=== PATIENT | female | born 2005 | race Hispanic/Latino ===

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

== ENCOUNTER 2024-05-01 16:33 | Emergency (ER) | payer MEDICAID, SELFPAY ==
--- NOTE | ~2024-05-01 | CT_ITS ---
EXAMINATION: CT brain wo con DATE: 05/01/2024 20:48 INDICATION: Dizziness and vision changes . TECHNIQUE: Computed tomography (CT) of the head was performed without intravenous contrast. The mA wa s adjusted according to patient size. Iterative reconstruction technique was employed. The dose-lengt h product was 681.00 mGy-cm. COMPARISON: None. FINDINGS: No acute intracranial hemorrhage or extra-axial fluid collection. No hydrocephalus, mass, or herniation. No acute ischemic infarct. Unremarkable dural venous sinus attenuation. No acute osseous abnormality. The aerated spaces are clear. IMPRESSION: No acute intracranial process. Reviewed, dictated and finalized at location K. RAL RESOURCE MANAGER
--- NOTE | ~2024-05-01 | XR_ITS ---
EXAMINATION: XR chest 2V Exam Date/Time: 05/01/2024 18:00 PITCH WORKER HISTORY: dizziness CHEST PAIN WITH HX OF ANXIETY Comparison: None. RESULT: Lines, tubes, and devices: None. Lungs and pleura: Clear. Cardiomediastinal silhouette: Normal. Other: No acute osseous or upper abdominal finding. IMPRESSION: No acute cardiopulmonary process. Reviewed, dictated and finalized at location K. H WORKER
[2024-05-01 16:48] VITALS: BP 121/74; PULSE 78; RESP 16; TEMP 36.4; O2SAT 100
--- NOTE | 2024-05-01 17:44 | ECG_ITS ---
Test Date: 2024-05-01 20:37:59 Measurements Intervals [place] Rate: 81 P: 57 MS: 140 QRS: 65 QRSD: 74 T: 58 QT: 359 QTc: 418 Interpretive Statements SINUS RHYTHM WITH SINUS ARRHYTHMIA POSSIBLE LEFT ATRIAL ENLARGEMENT RSR' IN V1 OR V2, PROBABLY NORMAL VARIANT BORDERLINE ECG No previous ECG available for comparison Electronically Signed On 05-02-2024 07:04:43 [employer]PLICATIONS SPECIALIST by Jose Lama D.O.
--- NOTE | 2024-05-01 17:46 | ED_ITS ---
HPI - Dizziness General Chief Complaint: Dizziness <Earle Mcconnell PA-C - Last Filed: 05/01/24 17:48> Stated Complaint: dizzy and lightheaded <Earle Mcconnell PA-C - Last Filed: 05/01/24 17:48> Time Seen by Provider: 05/01/24 20:00 <Earle Mcconnell PA-C - Last Filed: 05/01/24 17:48> Focused HPI: This is a 18-year-old female who presents to the ED for chief complaint of dizziness. States that she does have worsening dizziness whenever she rotates her head to the left. States that earlier today while in class she was both dizzy and lightheaded whenever she stood up. She went to the [facility] who thought she had BPPV but recommended coming to the ER for further evaluation. GENERAL: Well-appearing, well-nourished, and in no acute distress. HEAD: Normocephalic, atraumatic. CHEST: Clear to auscultation. No respiratory distress. HEART: Regular rate and rhythm. NEURO: Alert and oriented x3. Patient screened in triage and initial orders placed. Additional care and disposition to be based upon diagnostic testing and treatment. <Earle Mcconnell PA-C - Last Filed: 05/01/24 17:48> Source: patient <Earle Mcconnell PA-C - Last Filed: 05/01/24 17:48> Mode of arrival: ambulatory <Earle Mcconnell PA-C - Last Filed: 05/01/24 17:48> Limitations: no limitations <Earle Mcconnell PA-C - Last Filed: 05/01/24 17:48> History of Present Illness HPI Narrative: I agree with the above HPI <Willis Wayne MD - Last Filed: 05/02/24 00:01> Related Data Home Medications: Home Medications ?Medication ?Instructions ?Recorded ?Confirmed ?Last Taken ?Type alprazolam 0.25 mg tablet 0.25 mg PO PRN PRN Anxiety 09/28/23 09/28/23 Unknown History atomoxetine 25 mg capsule 25 mg PO DAILY 09/28/23 09/28/23 Unknown History buspirone 5 mg tablet 5 mg PO BID 09/28/23 09/28/23 Unknown History escitalopram oxalate 5 mg tablet 5 mg PO DAILY 09/28/23 09/28/23 Unknown History <Earle Mcconnell PA-C - Last Filed: 05/01/24 17:48> Allergies/Adverse Reactions: Allergies Allergy/AdvReac Type Severity Reaction Status Date / Time Penicillins Allergy Rash Verified 05/01/24 16:52 <Earle Mcconnell PA-C - Last Filed: 05/01/24 17:48> Review of Systems 2 Review of Systems: All systems reviewed & are unremarkable except as noted in HPI and below <Willis Wayne MD - Last Filed: 05/02/24 00:01> Exam 2 Narrative: APPEARANCE: Well appearing, no pain, no distress, well-nourished. HEAD: normocephalic, atraumatic. EYES: PERRLA/EOMI, conjunctivae clear. NOSE: Normal no drainage EARS:TMS clear with good light reflex. THROAT: Pharynx clear, no exudate. NECK: Supple. No adenopathy, no masses. RESPIRATORY: Airway patent, respirations nonlabored. Clear to auscultation bilaterally, no rales, rhonchi, wheezing. CARDIOVASCULAR: Regular rate and rhythm without murmurs rubs or gallops. ABDOMINAL: Soft, nontender, nondistended, normal bowel sounds MUSCULOSKELETAL: Moves all extremities. Strength/ROM intact, No edema, No calf tenderness. NEURO: Alert. Cranial nerves II through XII intact. Good gait. Good coordination SKIN: Warm, dry. Normal Color <Willis Wayne MD - Last Filed: 05/02/24 00:01> Course Vital Signs Vital signs: Vital Signs Temperature 97.6 F 05/01/24 16:48 Pulse Rate 78 05/01/24 16:48 Respiratory Rate 16 05/01/24 16:48 Blood Pressure 121/74 05/01/24 16:48 Pulse Oximetry 100 05/01/24 16:48 Oxygen Delivery Room Air 05/01/24 16:48 Temperature 97.6 F 05/01/24 16:48 Pulse Rate 86 05/01/24 22:30 Respiratory Rate 18 05/01/24 22:30 Blood Pressure 127/86 05/01/24 22:30 Pulse Oximetry 100 05/01/24 22:30 Oxygen Delivery Room Air 05/01/24 16:48 <Earle Mcconnell PA-C - Last Filed: 05/01/24 17:48> Vital Signs Temperature 97.6 F 05/01/24 16:48 Pulse Rate 78 05/01/24 16:48 Respiratory Rate 16 05/01/24 16:48 Blood Pressure 121/74 05/01/24 16:48 Pulse Oximetry 100 05/01/24 16:48 Oxygen Delivery Room Air 05/01/24 16:48 Temperature 97.6 F 05/01/24 16:48 Pulse Rate 86 05/01/24 22:30 Respiratory Rate 18 05/01/24 22:30 Blood Pressure 127/86 05/01/24 22:30 Pulse Oximetry 100 05/01/24 22:30 Oxygen Delivery Room Air 05/01/24 16:48 <Willis Wayne MD - Last Filed: 05/02/24 00:01> MDM - Dizziness MDM Narrative Medical decision making narrative: 18-year-old female presents emergency department for evaluation for lightheaded and dizziness. Patient had negative orthostatic vital signs after IV fluids. Patient is currently afebrile no leukocytosis and hemoglobin of 14.4. Patient has no acute abnormalities on her CMP patient was negative influenza RSV and for COVID, patient did go to urgent care and was instructed to present to the ED for a head CT and this was negative for acute intracranial abnormality. Chest x-ray shows no acute cardiopulmonary abnormality. EKG shows normal sinus rhythm. UA was negative for infection. Patient was updated results of her workup and states she does feel improved and patient confirmed that she was asymptomatic during her orthostatic vital signs. Patient was encouraged to increase her fluid intake and she was encouraged close follow-up with primary care physician. Patient was educated on reasons to return to the emergency department. All questions and concerns were addressed. Patient was well-appearing at time of discharge. <Willis Wayne MD - Last Filed: 05/02/24 00:01> Differential Diagnosis Differential diagnosis: Likely benign paroxysmal positional vertigo, orthostatic hypotension, cerebrovascular accident and transient cerebral ischemia <Willis Wayne MD - Last Filed: 05/02/24 00:01> Lab Data Attestation: I reviewed the patient's lab results. <Willis Wayne MD - Last Filed: 05/02/24 00:01> Result diagrams: 05/01/24 20:28 05/01/24 20:28 <Earle Mcconnell PA-C - Last Filed: 05/01/24 17:48> Labs: Lab Results 05/01/24 05/01/24 05/01/24 Range/Units 20:28 21:45 21:47 WBC 8.7 (4.5-10.0) K/mm3 RBC 4.98 (4.2-5.4) M/mm3 Hgb 14.4 (12.0-15.0) g/dL Hct 42.2 (37.0-47.0) % MCV 84.7 (80-100) fl MCH 28.9 (26-34) pg MCHC 34.1 (32-36) g/dl RDW 11.8 (11.5-14.5) % Plt Count 286 (150-375) k/mm3 MPV 9.5 (7.4-10.4) fl Immature Gran % (Auto) 0.2 (0-0.5) % Neut % (Auto) 70.2 (45.5-73.1) % Lymph % (Auto) 23.2 (18.3-44.2) % [place] % (Auto) 6.1 (2.6-8.5) % Eos % (Auto) 0.1 (0-4.4) % Baso % (Auto) 0.2 (0.2-1.2) % Lymph # (Auto) 2.02 (0.9-3.2) K/mm3 [place] # (Auto) 0.5 (0.1-0.6) K/mm3 Eos # (Auto) 0.0 (0-0.3) K/mm3 Baso # (Auto) 0.0 (0.0-0.1) K/mm3 Abs Immat Gran (auto) 0.02 (0.00-0.031) K/mm3 Absolute Neuts (auto) 6.1 (1.3-6.7) K/mm3 Absolute Nucleated RBC 0.000 (0.0-0.012) K/mm3 Nucleated RBC % 0.0 (0.0-0.2) % Sodium 138 (134-143) mmol/L Potassium 4.0 (3.4-5.0) mmol/L Chloride 100 (98-107) mmol/L Carbon Dioxide 24 (22-30) mmol/L Anion Gap 14 H (4-12) mmol/L BUN 11 (8-21) mg/dL Creatinine 0.65 L (0.7-1.0) mg/dL Estim Creat Clear Calc 86 ml/min Estimated GFR > 60 (59 - ) Glucose 100 (65-110) mg/dL Calcium 9.7 (8.9-10.7) mg/dL Total Bilirubin 0.8 (0.2-1.3) mg/dL AST 20 (14-36) U/L ALT 13 (6-35) U/L Alkaline Phosphatase 68 (45-116) U/L Total Protein 8.0 (6.3-8.6) g/dL Albumin 4.6 (3.7-5.6) g/dL Lipase 94 (23-300) U/L Urine Color Yellow (Yellow) Urine Appearance Clear (Clear) Urine pH 7.0 (5.0-9.0) Ur Specific [place] 1.004 (1.001-1.035) Urine Protein Negative (Negative) mg/dL Urine Glucose (UA) Negative (Negative) mg/dL Urine Ketones Negative (Negative) mg/dL Ur Blood (Man) Negative (Negative) Urine Nitrate Negative (Negative) Urine Bilirubin Negative (Negative) Urine Urobilinogen 0.2 (<2.0) mg/dL Leukocyte Esterase Rfl Negative (Negative) STEPHON/UL POC Urine HCG, Qual Negative (Negative) Influenza A (RT-PCR) Negative (Negative) Influenza B (RT-PCR) Negative (Negative) RSV (RT-PCR) Negative (Negative) SARS-CoV-2 RNA (RT-PCR) Negative (Negative) <Earle Mcconnell PA-C - Last Filed: 05/01/24 17:48> Lab Results 05/01/24 05/01/24 05/01/24 Range/Units 20:28 21:45 21:47 WBC 8.7 (4.5-10.0) K/mm3 RBC 4.98 (4.2-5.4) M/mm3 Hgb 14.4 (12.0-15.0) g/dL Hct 42.2 (37.0-47.0) % MCV 84.7 (80-100) fl MCH 28.9 (26-34) pg MCHC 34.1 (32-36) g/dl RDW 11.8 (11.5-14.5) % Plt Count 286 (150-375) k/mm3 MPV 9.5 (7.4-10.4) fl Immature Gran % (Auto) 0.2 (0-0.5) % Neut % (Auto) 70.2 (45.5-73.1) % Lymph % (Auto) 23.2 (18.3-44.2) % [place] % (Auto) 6.1 (2.6-8.5) % Eos % (Auto) 0.1 (0-4.4) % Baso % (Auto) 0.2 (0.2-1.2) % Lymph # (Auto) 2.02 (0.9-3.2) K/mm3 [place] # (Auto) 0.5 (0.1-0.6) K/mm3 Eos # (Auto) 0.0 (0-0.3) K/mm3 Baso # (Auto) 0.0 (0.0-0.1) K/mm3 Abs Immat Gran (auto) 0.02 (0.00-0.031) K/mm3 Absolute Neuts (auto) 6.1 (1.3-6.7) K/mm3 Absolute Nucleated RBC 0.000 (0.0-0.012) K/mm3 Nucleated RBC % 0.0 (0.0-0.2) % Sodium 138 (134-143) mmol/L Potassium 4.0 (3.4-5.0) mmol/L Chloride 100 (98-107) mmol/L Carbon Dioxide 24 (22-30) mmol/L Anion Gap 14 H (4-12) mmol/L BUN 11 (8-21) mg/dL Creatinine 0.65 L (0.7-1.0) mg/dL Estim Creat Clear Calc 86 ml/min Estimated GFR > 60 (59 - ) Glucose 100 (65-110) mg/dL Calcium 9.7 (8.9-10.7) mg/dL Total Bilirubin 0.8 (0.2-1.3) mg/dL AST 20 (14-36) U/L ALT 13 (6-35) U/L Alkaline Phosphatase 68 (45-116) U/L Total Protein 8.0 (6.3-8.6) g/dL Albumin 4.6 (3.7-5.6) g/dL Lipase 94 (23-300) U/L Urine Color Yellow (Yellow) Urine Appearance Clear (Clear) Urine pH 7.0 (5.0-9.0) Ur Specific [place] 1.004 (1.001-1.035) Urine Protein Negative (Negative) mg/dL Urine Glucose (UA) Negative (Negative) mg/dL Urine Ketones Negative (Negative) mg/dL Ur Blood (Man) Negative (Negative) Urine Nitrate Negative (Negative) Urine Bilirubin Negative (Negative) Urine Urobilinogen 0.2 (<2.0) mg/dL Leukocyte Esterase Rfl Negative (Negative) STEPHON/UL POC Urine HCG, Qual Negative (Negative) Influenza A (RT-PCR) Negative (Negative) Influenza B (RT-PCR) Negative (Negative) RSV (RT-PCR) Negative (Negative) SARS-CoV-2 RNA (RT-PCR) Negative (Negative) <Willis Wayne MD - Last Filed: 05/02/24 00:01> Imaging Data Radiologist's impression: Impressions Chest X-Ray 05/01/24 18:28 IMPRESSION: No acute cardiopulmonary process. Head CT 05/01/24 21:03 IMPRESSION: No acute intracranial process. <Willis Wayne MD - Last Filed: 05/02/24 00:01> Discharge Plan Discharge Clinical Impression: Lightheaded <Earle Mcconnell PA-C - Last Filed: 05/01/24 17:48> Patient Disposition: Home, Self-Care <Earle Mcconnell PA-C - Last Filed: 05/01/24 17:48> Condition: Stable <Earle Mcconnell PA-C - Last Filed: 05/01/24 17:48> Instructions: Antibiotic Form, Lightheadedness (ED), Dizziness (ED) <Earle Mcconnell PA-C - Last Filed: 05/01/24 17:48> Additional Instructions: Drink plenty of fluids. Have close follow-up with your primary care physician. If you have any worsening symptoms then please call or return to the emergency department. <Earle Mcconnell PA-C - Last Filed: 05/01/24 17:48> Patient Language: [place] <Earle Mcconnell PA-C - Last Filed: 05/01/24 17:48> Prescriptions: No Action buspirone 5 mg tablet 5 mg PO BID alprazolam 0.25 mg tablet 0.25 mg PO PRN PRN (Reason: Anxiety) atomoxetine 25 mg capsule 25 mg PO DAILY escitalopram oxalate 5 mg tablet 5 mg PO DAILY ibuprofen 800 mg tablet 800 mg PO Q6H PRN (Reason: pain) Qty: 30 0RF <Earle Mcconnell PA-C - Last Filed: 05/01/24 17:48> Follow-up/Referrals: UNKNOWN,DOCTOR [Primary Care Provider] - <Earle Mcconnell PA-C - Last Filed: 05/01/24 17:48>
--- OUTSIDE RECORDS SUMMARY | 2024-05-01 18:43 | XMS_ITS | Clinical Summary ---
Author Organization [facility] Address [address] [place] [address] Phone Care Team Providers Care Economic Adviser Name Role Phone Jackie Ogden MD Primary Care Provider [phone] [phone] Allergies Active Allergy Reactions Criticality Noted Date Comments Egg-Derived Products Rash Low 01/02/2016 Penicillins Other (see Comments),Rash Medium 7 Medications atomoxetine (STRATTERA) 25 MG Capsule Take 25 mg by mouth. 01/11/2024 Active venlafaxine (EFFEXOR-XR) 75 MG CAPSULE SR 24 HR Take 75 mg by mouth. 01/11/2024 Active naproxen (NAPROSYN) 500 MG Tablet Take 1 Tablet by mouth 2 times daily as needed for Mild or more severe pain. 20 Tablet 04/29/2024 Active Encounters Date Type Department Care Team Description 04/29/2024 5:33 PM CLASSIFIED COPY CONTROL CLERK - 04/29/2024 6:59 PM CLASSIFIED COPY CONTROL CLERK Emergency [facility] Emergency [address] [place] [address] Lela Alejandro, CVOR NURSE, PROPULSION GENERATOR REPAIRER Renal colic, bilateral Discharge Disposition: Discharged to home or Selfcare 04/29/2024 Travel from Last 3 Months Social History Tobacco Use Types Packs/Day Years Used Date Smoking Tobacco: Never Smokeless Tobacco: Never Tobacco Cessation:Counseling Given: Not Answered Comments Unknown Sex and Gender Information Value Date Recorded Sex Assigned at Not on file Legal Sex Female 5:23 PM CLASSIFIED COPY CONTROL CLERK Gender Identity Not on file Sexual Orientation Not on file Last Filed Vital Signs Vital Sign Reading Time Taken Comments Blood Pressure 140/84 04/29/2024 6:56 PM CLASSIFIED COPY CONTROL CLERK Pulse 99 04/29/2024 6:56 PM CLASSIFIED COPY CONTROL CLERK Temperature 36.7 C (98 F) 04/29/2024 5:31 PM CLASSIFIED COPY CONTROL CLERK Respiratory Rate 16 04/29/2024 6:56 PM CLASSIFIED COPY CONTROL CLERK Oxygen Saturation 100% 04/29/2024 6:56 PM CLASSIFIED COPY CONTROL CLERK Inhaled Oxygen Concentration - - Weight 42.6 kg (94 lb) 04/29/2024 5:31 PM CLASSIFIED COPY CONTROL CLERK Height 152.4 cm (5') 04/29/2024 5:31 PM CLASSIFIED COPY CONTROL CLERK Body Mass Index 18.36 04/29/2024 5:31 PM CLASSIFIED COPY CONTROL CLERK Plan of Treatment Health Maintenance Due Date Last Done Comments Hepatitis C Virus (HCV) Screening 2004 Meningococcal B Immunization (1 of 2 - Standard) 2020 Human Papillomavirus (HPV) Immunization (3 - Risk 3-dose series) 02/02/2021 10/02/2020, 08/01/2018 Influenza Immunization (#1) 2023 SARS-COV-2 Immunization ( season) 2023 04/19/2021, 03/27/2021 Respiratory Syncytial Virus (RSV) Immunization (Adult) (1 - 1-dose 75+ series) 12/26/2079 Hepatitis B Immunization Completed 006, 07/22/2005, 03/19/2005, Additional history exists Pneumococcal Immunization Combined Aged Out 07/07/2010, 01/12/2006, 07/22/2005, Additional history exists No longer eligible based on patient's age to complete this topic TdaP Immunization Completed 10/31/2016, 11/01/2015 Meningococcal Immunization (ACWY) Completed 10/19/2022, 12/20/2016 Rotavirus Immunization Aged Out No lo nger eligible based on patient's age to complete this topic Procedures Procedure Name Priority Date/Time Associated Diagnosis Comments CT RENAL STONE STUDY (ABDOMEN AND PELVIS W/O CONTRAST) Stat with Interpretation 04/29/2024 6:10 PM CLASSIFIED COPY CONTROL CLERK POCT URINE HCG () STAT 04/29/2024 5:51 PM CLASSIFIED COPY CONTROL CLERK URINALYSIS REFLEX IF INDICATED BY ABNORMAL RESULTS STAT 04/29/2024 5:45 PM CLASSIFIED COPY CONTROL CLERK RSV,SARS-COV-2,INF LUENZA A&B BY PCR STAT 04/29/2024 5:45 PM CLASSIFIED COPY CONTROL CLERK CBC WITH AUTO DIFFERENTIAL STAT 04/29/2024 5:41 PM CLASSIFIED COPY CONTROL CLERK CMP (COMPREHENSIVE METABOLIC PANEL) STAT 04/29/2024 5:41 PM CLASSIFIED COPY CONTROL CLERK COMPLETE BLOOD COUNT (CBC) WITH DIFF STAT 04/29/2024 5:41 PM CLASSIFIED COPY CONTROL CLERK from Last 3 Months Results * CT RENAL STONE STUDY (ABDOMEN AND PELVIS W/O CONTRAST) (04/29/2024 6:10 PM CLASSIFIED COPY CONTROL CLERK) Anatomical Region Laterality Modality Abdomen N/A Computed Tomogra phy 04/29/2024 6:25 PM CLASSIFIED COPY CONTROL CLERK Impressions 04/29/2024 6:27 PM CLASSIFIED COPY CONTROL CLERK IMPRESSION: 1. No hydronephrosis or hydroureter. No calculi in the urinary tract. 2. Circumferential thickening of the urinary bladder wall which is could be due to incomplete distension. However, cystitis remains a possibility in the appropriate clinical setting. Correlation with urinalysis is suggested. Narrative 04/29/2024 6:27 PM CLASSIFIED COPY CONTROL CLERK EXAM DESCRIPTION: CT RENAL STONE STUDY (ABDOMEN AND PELVIS W/O CONTRAST) REASON FOR STUDY: pt c/o bilateral flank pain, but is more painful on the left. pt states she has burning when urinating TECHNIQUE: CT scan of the abdomen and pelvis performed without intravenous and without oral contrast using helical scanning technique. Reconstructed coronal and sagittal MPR images reviewed. All images stored on PACS. Automated exposure control was used as a dose optimization technique for this examination. COMPARISON: None available FINDINGS: The sensitivity for detection of visceral lesions is diminished without the use of intravenous contrast. LOWER CHEST: Mild scattered subsegmental atelectasis. No pleural effusion. Imaged portions of the heart and esophagus are within normal limits. LIVER: Normal size. No identified cystic or solid masses. GALLBLADDER: Normal. BILE DUCTS: No intrahepatic or extrahepatic ductal dilatation. SPLEEN: Normal size. No focal lesions. PANCREAS: No identified cystic or solid masses. No significant calcifications. No adjacent inflammation or peripancreatic fluid collections. Pancreatic duct not dilated. ADRENALS: Normal. KIDNEYS/URINARY TRACT: No identified significant cystic or solid masses. No stones. No hydronephrosis or hydroureter. Circumferential thickening of the urinary bladder wall which is incompletely distended. GI: The stomach is normal. Small bowel and colon are normal in course and caliber with no evidence of obstruction or inflammation. The appendix is normal. PERITONEUM: Trace volume free pelvic fluid. No free air. No lymphadenopathy. RETROPERITONEUM: No mass or adenopathy. REPRODUCTIVE: No significant abnormality. Adnexal follicles are present. VASCULATURE: No abdominal aortic aneurysm. MUSCULOSKELETAL: No acute fractures or aggressive osseous lesions. THIS IS AN ELECTRONICALLY VERIFIED FINAL REPORT 04/29/2024 6:25 PM - Electronically signed by Ramakrishna Reynoso M.D. AT: AT Report ID: [id number] Reading Location: [id number] Procedure Note Ramakrishna Reynoso MD - 04/29/2024 EXAM DESCRIPTION: CT RENAL STONE STUDY (ABDOMEN AND PELVIS W/O CONTRAST) REASON FOR STUDY: pt c/o bilateral flank pain, but is more painful on the left. pt states she has burning when urinating TECHNIQUE: CT scan of the abdomen and pelvis performed without intravenous and without oral contrast using helical scanning technique. Reconstructed coronal and sagittal MPR images reviewed. All images stored on PACS. Automated exposure control was used as a dose optimization technique for this examination. COMPARISON: None available FINDINGS: The sensitivity for detection of visceral lesions is diminished without the use of intravenous contrast. LOWER CHEST: Mild scattered subsegmental atelectasis. No pleural effusion. Imaged portions of the heart and esophagus are within normal limits. LIVER: Normal size. No identified cystic or solid masses. GALLBLADDER: Normal. BILE DUCTS: No intrahepatic or extrahepatic ductal dilatation. SPLEEN: Normal size. No focal lesions. PANCREAS: No identified cystic or solid masses. No significant calcifications. No adjacent inflammation or peripancreatic fluid collections. Pancreatic duct not dilated. ADRENALS: Normal. KIDNEYS/URINARY TRACT: No identified significant cystic or solid masses. No stones. No hydronephrosis or hydroureter. Circumferential thickening of the urinary bladder wall which is incompletely distended. GI: The stomach is normal. Small bowel and colon are normal in course and caliber with no evidence of obstruction or inflammation. The appendix is normal. PERITONEUM: Trace volume free pelvic fluid. No free air. No lymphadenopathy. RETROPERITONEUM: No mass or adenopathy. REPRODUCTIVE: No significant abnormality. Adnexal follicles are present. VASCULATURE: No abdominal aortic aneurysm. MUSCULOSKELETAL: No acute fractures or aggressive osseous lesions. THIS IS AN ELECTRONICALLY VERIFIED FINAL REPORT 04/29/2024 6:25 PM - Electronically signed by Ramakrishna Reynoso M.D. AT: AT Report ID: [id number] Reading Location: [id number] IMPRESSION: 1. No hydronephrosis or hydroureter. No calculi in the urinary tract. 2. Circumferential thickening of the urinary bladder wall which is could be due to incomplete distension. However, cystitis remains a possibility in the appropriate clinical setting. Correlation with urinalysis is suggested. Lela Alejandro APRN, CNP IMG CT ORDERABLES Fin al Result * POCT Urine HCG () (04/29/2024 5:51 PM CLASSIFIED COPY CONTROL CLERK) Pathologist [facility] POC URINE Negative POC URINE CONTROL Income Tax Consultant Pass Urine 04/29/2024 5:51 PM CLASSIFIED COPY CONTROL CLERK Lela Alejandro APRN, CNP POINT OF CARE TESTING (MANUAL) Final Result * (ABNORMAL) URINALYSIS REFLEX IF INDICATED BY ABNORMAL RESULTS (04/29/2024 5:45 PM CLASSIFIED COPY CONTROL CLERK) Pathologist [facility] SPECIFIC GRAVITY 1.010 1.003 - 1.030 04/29/2024 6:18 PM CLASSIFIED COPY CONTROL CLERK [facility] URINE PH 6.0 5.0 - 9.0 04/29/2024 6:18 PM CLASSIFIED COPY CONTROL CLERK [facility] WBC ESTERASE 25 /ul(A) Negative 04/29/2024 6:18 PM CLASSIFIED COPY CONTROL CLERK [facility] NITRITE Negative Negative 04/29/2024 6:18 PM CLASSIFIED COPY CONTROL CLERK [facility] PROTEIN, RANDOM URINE Negative Negative 04/29/2024 6:18 PM CLASSIFIED COPY CONTROL CLERK [facility] URINE GLUCOSE, QUAL Negative Negative 04/29/2024 6:18 PM CLASSIFIED COPY CONTROL CLERK [facility] URINE KETONES Negative Negative 04/29/2024 6:18 PM CLASSIFIED COPY CONTROL CLERK [facility] UROBILINOGEN Normal Normal mg/dL 04/29/2024 6:18 PM CLASSIFIED COPY CONTROL CLERK [facility] URINE BLOOD Negative Negative johnathan/ul 04/29/2024 6:18 PM CLASSIFIED COPY CONTROL CLERK [facility] URINALYSIS COLOR Yellow 04/29/19 6:18 PM CLASSIFIED COPY CONTROL CLERK [facility] URINALYSIS CLARITY Clear 04/29/2024 6:18 PM CLASSIFIED COPY CONTROL CLERK [facility] WBC (Urine) 0-5 Negative, 0-5 /hpf 04/29/2024 6:18 PM CLASSIFIED COPY CONTROL CLERK [facility] URINE RBC'S Negative Negative, 0-2 /hpf 04/29/2024 6:18 PM CLASSIFIED COPY CONTROL CLERK [facility] EPITHELIAL CELLS Small amount /lpf 2024 6:18 PM CLASSIFIED COPY CONTROL CLERK [facility] BACTERIA, URINE Negative Negative /hpf 04/29/2024 6:18 PM CLASSIFIED COPY CONTROL CLERK [facility] Urine URINE SPECIMEN OBTAINED BY CLEAN CATCH PROCEDURE / Unknown Non-Phlebotomy Collection / Unknown 04/29/2024 5:45 PM CLASSIFIED COPY CONTROL CLERK 04/29/2024 5:58 PM CLASSIFIED COPY CONTROL CLERK us Lela Alejandro CVOR NURSE, PROPULSION GENERATOR REPAIRER URINE ORDERABLES Debbie l Result [facility] [address] [place] [address] * RSV,SARS-COV-2,INFLUENZA A&B BY PCR (04/29/2024 5:45 PM CLASSIFIED COPY CONTROL CLERK) FLU A Negative Negative, Error 04/29/2024 6:38 PM CLASSIFIED COPY CONTROL CLERK [facility] FLU B Negative Negative 04/29/2024 6:38 PM CLASSIFIED COPY CONTROL CLERK [facility] RESP SYNC VIRUS Negative Negative 6:38 PM CLASSIFIED COPY CONTROL CLERK [facility] SARSCOV2 NOT DETECTED (Reference Range for this test is Not Detected) 04/29/2024 6:38 PM CLASSIFIED COPY CONTROL CLERK [facility] Comment:This test was perfor med by a Reverse Machine Hose Cutter PCR Method. Swab NASOPHARYNGEAL STRUCTURE / Unknown Non-Phlebotomy Collection / Unknown 04/29/2024 5:45 PM CLASSIFIED COPY CONTROL CLERK 04/29/2024 5:58 PM CLASSIFIED COPY CONTROL CLERK us Lela Alejandro CVOR NURSE, PROPULSION GENERATOR REPAIRER MICROBIOLOGY - GENERA L ORDERABLES Final Result [facility] [address] [place] [address] * (ABNORMAL) CBC with Auto Differential (04/29/2024 5:41 PM CLASSIFIED COPY CONTROL CLERK) WBC 6.73 4.00 - 12.00 10(3)/mcL 04/29/2024 6:02 PM [facility] RBC 4.98 3.80 - 5.30 10(6)/mcL 04/29/2024 6:02 PM [facility] HEMOGLOBIN (HGB) 14.8 12.0 - 15.8 g/dL 04/29/2024 6:02 PM [facility] HEMATOCRIT (HCT) 42.5 36.0 - 47.0 % 04/29/2024 6:02 PM CLASSIFIED COPY CONTROL CLERK [facility] MCV 85.3 82.0 - 96.0 fL 04/29/2024 6:02 PM [facility] MCH 29.7 26.0 - 34.0 pg 04/29/2024 6:02 PM [facility] MCHC 34.8 31.0 - 36.0 g/dL 04/29/2024 6:02 PM [facility] PLATELET COUNT 320 140 - 440 10(3)/[facility] 04/29/2024 6:02 PM [facility] RDW 11.6(L) 11.8 - 15.5 % 04/29/2024 6:02 PM [facility] MPV 9.6(L) 9.7 - 12.4 fL 04/29/2024 6:02 PM [facility] NEUTROPHILS 65.8 47.0 - 73.0 % 04/29/2024 6:02 PM [facility] LYMPHOCYTES 26.7 18.0 - 42.0 % 04/29/2024 6:02 PM [facility] MONOCYTES 7.1 4.0 - 12.0 % 04/29/2024 6:02 PM [facility] EOSINOPHILS 0.1 0.0 - 5.0 % 04/29/2024 6:02 PM [facility] BASOPHILS 0.3 0.0 - 1.0 % 04/29/2024 6:02 PM [facility] ABSOLUTE NEUTROPHILS 4.42 1.60 - 7.70 10(3)/[facility] 04/29/2024 6:02 PM [facility] ABSOLUTE LYMPHOCYTES 1.80 1.30 - 3.20 10(3)/[facility] 04/29/2024 6:02 PM [facility] ABSOLUTE MONOCYTES 0.48 0.20 - 1.00 10(3)/[facility] 04/29/2024 6:02 PM [facility] ABSOLUTE EOSINOPHIL 0.01 0.00 - 0.40 10(3)/[facility] 04/29/2024 6:02 PM [facility] ABSOLUTE BASOPHILS 0.02 0.00 - 0.10 10(3)/[facility] 04/29/2024 6:02 PM [facility] NRBC PER 100 WBC 0 04/29/19 6:02 PM [facility] Blood Venipuncture / Unknown 04/29/2024 5:41 PM CLASSIFIED COPY CONTROL CLERK 04/29/2024 5:58 PM CLASSIFIED COPY CONTROL CLERK us Lela Alejandro CVOR NURSE, PROPULSION GENERATOR REPAIRER HEMATOLOGY ORDERABLES Final Result [facility] [address] [place] [address] * (ABNORMAL) Comprehensive Metabolic Panel (Cmp) [id number] (04/29/2024 5:41 PM CLASSIFIED COPY CONTROL CLERK) SODIUM 139 136 - 145 mmol/L 04/29/2024 6:23 PM CLASSIFIED COPY CONTROL CLERK [facility] POTASSIUM 3.5 3.5 - 5.1 mmol/L 04/29/2024 6:23 PM [facility] CHLORIDE 105 98 - 107 mmol/L 04/29/2024 6:23 PM [facility] CO2, VENOUS 25 22 - 30 mmol/L 04/29/2024 6:23 PM [facility] ANION GAP 12.5 <18.0 mmol/L 04/29/2024 6:23 PM [facility] GLUCOSE 88 70 - 99 mg/dL 04/29/2024 6:23 PM [facility] BUN 5 5 - 18 mg/dL 04/29/2024 6:23 PM [facility] CREATININE, BLOOD 0.83 0.60 - 1.00 mg/dL 04/29/2024 6:23 PM [facility] BUN/CREATININE RATIO 6(L) 12 - 20 ratio 04/29/2024 6:23 PM [facility] TOTAL PROTEIN 7.7 6.0 - 8.0 g/dL 04/29/2024 6:23 PM [facility] ALBUMIN 4.5 3.5 - 5.0 g/dL 04/29/2024 6:23 PM [facility] A/G RATIO 1.4 1.0 - 2.2 04/29/2024 6:23 PM [facility] CALCIUM 9.0 8.7 - 10.5 mg/dL 04/29/2024 6:23 PM CLASSIFIED COPY CONTROL CLERK [facility] T BILI 0.7 0.2 - 1.2 mg/dL 04/29/2024 6:23 PM CLASSIFIED COPY CONTROL CLERK [facility] SGOT (AST) 17 <43 U/L 04/29/2024 6:23 PM CLASSIFIED COPY CONTROL CLERK [facility] SGPT (ALT) 7 <56 U/L 04/29/2024 6:23 PM CLASSIFIED COPY CONTROL CLERK [facility] ALKALINE PHOSPHATASE 73 40 - 150 U/L 04/29/2024 6:23 PM CLASSIFIED COPY CONTROL CLERK [facility] GFR, ESTIMATED >60 >=60 04/29/2024 6:23 PM CLASSIFIED COPY CONTROL CLERK [facility] Comment: Creatinine Clearance is the preferred criteria for selecting drug dose adjustments in renally impaired patients. The GFR is provided as additional pertinent clinical information. GFR is reported in mL/min/1.73 sq m. Calculation based on the Chronic Kidney Disease Epidemiology Collaboration (CKD- EPI) equation refit without adjustment for race. UNABLE TO CALCULATE GFR, EST. 025 6:23 PM CLASSIFIED COPY CONTROL CLERK [facility] GFR, EST. NONAFRICAN 04/29/2024 6:23 PM CLASSIFIED COPY CONTROL CLERK [facility] Blood Venipuncture / Unknown 04/29/2024 5:41 PM CLASSIFIED COPY CONTROL CLERK 04/29/2024 5:58 PM CLASSIFIED COPY CONTROL CLERK Lela Alejandro CVOR NURSE, PROPULSION GENERATOR REPAIRER CHEMISTRY ORDERABLES Final Result [facility] [address] [place] [address] from Last 3 Months Insurance [place]ICAID [place] Care Teams Economic Adviser Relationship Specialty Start Date End Date Jackie Ogden MD [address] [place] [id number] PCP - General Family Medicine 04/29/24
--- OUTSIDE RECORDS SUMMARY | 2024-05-01 18:43 | XMS_ITS | Clinical Summary ---
Author Organization [facility] Address [address] [place] [address] Care Team Providers Care Scada Operator Name Role Phone Jackie Ogden MD Primary Care Provider [phone] [phone] Allergies Active Allergy Reactions Criticality Noted Date Comments Buspirone Anxiety Low 11/02/2023 Penicillin Rash,Fever Medium 11/02/2023 Medications ibuprofen (ADVIL,MOTRIN) 600 mg tabletIndication s:Pain Take 1 tablet (600 mg total) by mouth every 6 (six) hours as needed for pain 30 tablet 11/02/2023 Active Medical History Medical History Date Comments Migraine Social History Tobacco Use Types Packs/Day Years Used Date Smoking Tobacco: Never Tobacco Cessation:Counseling Given: Not Answered Alcohol Use Standard Drinks/Week Comments Yes 0 (1 standard drink = 0.6 oz pur e alcohol) Occasional Personal Safety Answer Date Recorded Have you ever been in or are you currently in a harmful physical or emotional relationship or is someone making you feel afraid or unsafe? Denies 11/02/2023 Comments No Sex and Gender Information Value Date Recorded Sex Assigned at Not on file Legal Sex Female 1:53 PM CDT Gender Identity Not on file Sexual Orientation Not on file Obstetrics History Growth Chart Information Age Height Weight Ajlnfi-ave-ykiu th Percentile BMI Percentile Head Circum Head Circum Percentile Date 17 years 152.4 cm (5') 43.1 kg (95 lb) 11.65%* 2023 * [facility] (Girls, 2-20 Years) Last Filed Vital Signs Vital Sign Reading Time Taken Comments Blood Pressure 127/68 11/02/2023 4:30 PM CDT Pulse 78 11/02/2023 4:30 PM CDT Temperature 36.1 C (97 F) 11/02/2023 1:58 PM CDT Respiratory Rate 18 11/02/2023 1:58 PM CDT Oxygen Saturation 94% 11/02/2023 4:30 PM CDT Inhaled Oxygen Concentration - - Weight 43.1 kg (95 lb) 11/02/2023 1:58 PM CDT Height 152.4 cm (5') 11/02/2023 1:58 PM CDT Body Mass Index 18.55 11/02/2023 1:58 PM CDT Body Mass Index Percentile 11.65% 11/02/2023 1:5 8 PM CDT Growth Chart: [facility] (Girls, 2- 20 Years) Plan of Treatment Health Maintenance Due Date Last Done Comments Depression Screening 2004 Hepatitis C Screening 2004 Meningococcal B Vaccine (1 o f 2 - Standard) 2020 Regular Well Visit/Exam 18-64 2022 Covid-19 Vaccine (3 - 2023-2 5 season) 2023 04/19/2021, 03/27/2021 Influenza Vaccine (#1) 2023 DTaP/Tdap/Td Vaccine (8 - Td or Tdap) 10/31/2026 10/31/2016, 11/01/2015, 08/19/2009, Additional history exists Hepatitis B Screening Completed 07/22/2005 , 07/22/2005, 07/22/2005, Additional history exists Varicella Vaccines Completed 08/19/2009, 0 08/19/2009, 01/12/2006 Pneumococcal vaccine <65 Completed 011, 01/12/2006, 07/22/2005, Additional history exists HPV Vaccines Completed 10/02/2020, 08/01/2018 Meningococcal Vaccine Completed 10/19/2022, 017 Insurance [facility] PL[facility] [place] [id number] Care Teams Scada Operator Relationship Specialty Start Date End Date Jackie Ogden MD [address] [place] [id number] PCP - General Family Medicine 11/02/23
--- OUTSIDE RECORDS SUMMARY | 2024-05-01 18:43 | XMS_ITS | Referral Summary ---
Author Organization [facility] Address [address] [place] [address] Care Team Providers Care Mechanism Inspector Name Role Phone Jackie Ogden MD Primary Care Provider [phone] Allergies Active Allergy Reactions Criticality Noted Date Comments Buspirone Anxiety Low 11/02/2023 Penicillin Rash,Fever Medium 11/02/2023 Medications ibuprofen (ADVIL,MOTRIN) 600 mg tabletIndication s:Pain Take 1 tablet (600 mg total) by mouth every 6 (six) hours as needed for pain 30 tablet 11/02/2023 Active Social History Tobacco Use Types Packs/Day Years [...] 11/02/2023 1:5 8 PM CDT Growth Chart: [facility] (Girls, 2- 20 Years) Plan of Treatment Not on file Insurance [facility] PLAN [place] [id number] Care Teams Mechanism Inspector Relationship Specialty Start Date End Date Jackie Ogden MD [address] [place] [id number] PCP - General Family Medicine 11/02/23
--- OUTSIDE RECORDS SUMMARY | 2024-05-01 18:43 | XMS_ITS | Referral Summary ---
Author Organization Avelina [facility]on Alphonso caron [facility] Address [address] [place] [address] Care Team Providers Care Tomb Maker Helper Name Role Phone Provider, Aviva Unavailable Unavailable Fabian Hanna DO Unavailable Lupe Gipson RN Unavailable Unavailable Maame Duarte APRN-FIRE EATER Unavailable + Not Named, Unknown Primary Care Provider Unavail able Allergies Active Allergy Reactions Criticality Noted Date Comments Egg Rash 01/02/2016 Mosquitos Fever 01/02/2016 Other (See Comments) Rash 01/02/2016 Triaminic - rash Penicillins Rash 01/02/2016 Medications Medication Sig Dispensed Refills Start Date End Date Status polyethylene glycol (MIRALAX) 17 gram/dose powder Give 17 g by mouth daily. 1 Bottle 2 03/19/2016 Active omeprazole (PRILOSEC) [address] tablet Give 1 tablet (20 mg total) by mouth daily. 30 tablet 2 03/19/2016 Active Active Problems Problem Noted Date Diagnosed Date Vomiting, intractability of vomiting not specified, presence of nausea not specified, unspecified vomiting type 01/02/2016 Abdominal pain, unspecified location 01/02/2016 Social History Tobacco Use Types Packs/Day Years Used Date Smoking Tobacco: Never Assessed Sex and Gender Information Value Date Recorded Sex Assigned at Not on file Gender Identity Not on file Sexual Orientation Not on file Last Filed Vital Signs Vital Sign Reading Time Taken Comments Blood Pressure 106/67 07/01/2016 9:54 AM CDT Pulse 80 07/01/2016 9:54 AM CDT Temperature 36.6 C (97.9 F) 07/01/2016 9:54 AM CDT Respiratory Rate 18 07/01/2016 9:54 AM CDT Oxygen Saturation 98% 07/01/2016 9:54 AM CDT Inhaled Oxygen Concentration - - Weight 30.3 kg (66 lb 12.8 oz) 07/01/2016 9:54 A M CDT Height 133.4 cm (4' 4.52 ) 07/01/2016 9:54 AM CD T Head Circumference 52.5 cm 07/01/2016 9:54 AM CDT Body Mass Index 17.03 07/01/2016 9:54 AM CDT Body Mass Index Percentile 38.12% 07/01/2016 9:5 4 AM CDT Growth Chart: [facility] [place] (Girls, 2- 20 Years) Plan of Treatment Not on file Care Teams Tomb Maker Helper Relationship Specialty Start Date End Date Not Named, Unknown PCP - General 03/14/24 Provider, [facility] 12/03/15 Fabian Hanna DO [address] [facility] [address] [place] [address] GASTROENTEROLOGY 01/02/16 Lupe Gipson, RN Nurse 03/02/16 Maame Duarte APRN-FIRE EATER [address] [facility] [address] [place], [place] [id number] CENTRAL OFFICE REPAIRER SUPERVISOR - Nurse Practitioner NEUROLOGY 07/01/16
--- OUTSIDE RECORDS SUMMARY | 2024-05-01 18:43 | XMS_ITS | Encounter Summary ---
Author Organization [facility] Address [address] [place] [address] Phone Care Team Providers Care Clinical Quality Assurance Associate Name Role Phone Jackie Ogden MD Primary Care Provider [phone] Reason for Visit * Reason Comments Flank Pain Encounter Details Date Type Department Care Team (Late st Contact Info) Description 04/29/2024 5:33 PM WORD PROCESSING OPERATOR - 04/29/2024 6:59 PM WORD PROCESSING OPERATOR Emergency [facility] Emergency [address] [place] [address] Lela Alejandro, LIFE TRAINER, LABORATORY [employer] [address] [place] [address] Renal colic, bilateral Discharge Disposition: Discharged to home or Selfcare Social History Tobacco Use Types Packs/Day Years Used Date Smoking Tobacco: Never Smokeless Tobacco: Never Tobacco Cessation:Counseling Given: Not Answered Comments Unknown Sex and Gender Information Value Date Recorded Sex Assigned at Not on file Legal Sex Female 5:23 PM WORD PROCESSING OPERATOR Gender Identity Not on file Sexual Orientation Not on file documented as of this encounter Last Filed Vital Signs Vital Sign Reading Time Taken Comments Blood Pressure 140/84 04/29/2024 6:56 PM WORD PROCESSING OPERATOR Pulse 99 04/29/2024 6:56 PM WORD PROCESSING OPERATOR Temperature 36.7 C (98 F) 04/29/2024 5:31 PM WORD PROCESSING OPERATOR Respiratory Rate 16 04/29/2024 6:56 PM WORD PROCESSING OPERATOR Oxygen Saturation 100% 04/29/2024 6:56 PM WORD PROCESSING OPERATOR Inhaled Oxygen Concentration - - Weight 42.6 kg (94 lb) 04/29/2024 5:31 PM WORD PROCESSING OPERATOR Height 152.4 cm (5') 04/29/2024 5:31 PM WORD PROCESSING OPERATOR Body Mass Index 18.36 04/29/2024 5:31 PM WORD PROCESSING OPERATOR documented in this encounter Discharge Instructions * Discharge Instructions* Lela Alejandro APRN, CNP - 04/29/2024 6:43 PM WORD PROCESSING OPERATOR Follow-up with primary care physician. Return to the ED with worsening symptoms. PROCESSING OPERATOR documented in this encounter Medications at Time of Discharge atomoxetine (STRATTERA) 25 MG Capsule Take 25 mg by mouth. 01/11/2024 naproxen (NAPROSYN) 500 MG Tablet Take 1 Tablet by mouth 2 times daily as needed for Mild or more severe pain. 20 Tablet 04/29/2024 venlafaxine (EFFEXOR-XR) 75 MG CAPSULE SR 24 HR Take 75 mg by mouth. 01/11/2024 documented as of this encounter ED Notes * Vira Millan RN - 04/29/2024 6:58 PM CST Patient discharged. Discharge instructions and patient educational material reviewed with patient; questions and concerns addressed; patient verbalizes understanding, using teach back. Patient was given 1 prescription. Patient discharged per ambulatory mode with steady gait with self as responsibleparty. SL D/C'ed with Leif cath intact. PROCESSING OPERATOR * Vira Millan RN - 04/29/2024 6:40 PM CST Report received from Doreen JIMENEZ PROCESSING OPERATOR * Melisa Aleman RN - 04/29/2024 6:30 PM CST Patient is resting in room with call light at bedside. Patient informed about wait time and verbalizes understanding. Patient denies needs at this time and verbalizes understanding that RN will complete hourly rounding. PROCESSING OPERATOR * Lela Alejandro, LIFE TRAINER, LABORATORY [employer] - 04/29/2024 5:38 PM CST Chief Complaint Patient presents with Flank Pain Quiana Dominguez is a 18 y.o. female who presents to the ED c/o bilateral flank pain that is worse on the left than the right. Patient states that she has been drinking more alcohol than normal over the past few days. She developed generalized body aches and bilateral flank pain. She describes the painas a burning sensation. She reports tenderness upon palpation. She denies any urinary symptoms. Denies recent fever. Past Medical History Positives No date: Migraines No current facility-administered medications for this encounter. Current Outpatient Medications Medication Sig Dispense Refill atomoxetine (STRATTERA) 25 MG Capsule Take 25 mg by mouth. venlafaxine (EFFEXOR-XR) 75 MG CAPSULE SR 24 HR Take 75 mg by mouth. Allergies Allergen Reactions Penicillins Other (see Comments) and Rash Egg-Derived Products Rash Past Medical History Positives Diagnosis Date Migraines No past surgical history on file. Social History Socioeconomic History Marital status: Single Spouse name: Not on file Number of children: Not on file Years of education: Not on file Highest education level: Not on file Occupational History Not on file Tobacco Use Smoking status: Never Smokeless tobacco: Never Substance and Sexual Activity Alcohol use: Not on file Drug use: Not on file Sexual activity: Not on file Other Topics Concern Not on file Social History Narrative Not on file Social Drivers of Health Financial Resource Needs: Not on file Food Insecurity Needs: Not on file Transportation Needs: Not on file Physical Activity: Not on file Stress: Not on file Social Integration: Not on file Personal Safety: Not on file Housing Stability: Not on file BP 140/84 Pulse 99 Temp 98 ??F (36.7 ??C) (Tympanic) Resp 16 Ht 5' (1.524 m) Wt (!) 94 lb(42.6 kg) LMP 04/08/2024 SpO2 100% BMI 18.36 kg/m?? Review of Systems Constitutional: Negative for chills and fever. HENT: Negative for congestion, ear pain, rhinorrhea and sore throat. Eyes: Negative for discharge. Respiratory: Negative for cough, chest tightness, shortness of breath and wheezing. Cardiovascular: Negative for chest pain and palpitations. Gastrointestinal: Negative for abdominal pain, diarrhea, nausea and vomiting. Genitourinary: Positive for flank pain. Negative for difficulty urinating, dysuria, frequency, hematuria and menstrual problem. Musculoskeletal: Positive for myalgias. Negative for arthralgias. Skin: Negative for rash and wound. Neurological: Negative for dizziness, syncope, weakness, numbness and headaches. All other systems reviewed and are negative. Physical Exam Vitals and nursing note reviewed. Constitutional: General: She is not in acute distress. Appearance: She is well-developed. She is not diaphoretic. HENT: Head: Normocephalic and atraumatic. Right Ear: External ear normal. Left Ear: External ear normal. Eyes: Conjunctiva/sclera: Conjunctivae normal. Pupils: Pupils are equal, round, and reactive to light. Neck: Trachea: No tracheal deviation. Cardiovascular: Rate and Rhythm: Normal rate and regular rhythm. Pulses: Normal pulses. Heart sounds: Normal heart sounds. No murmur heard. Pulmonary: Effort: Pulmonary effort is normal. No respiratory distress. Breath sounds: Normal breath sounds. No wheezing or rales. Abdominal: General: Bowel sounds are normal. There is no distension. Palpations: Abdomen is soft. Tenderness: There is no abdominal tenderness. There is left CVA tenderness. There is no guarding orrebound. Musculoskeletal: General: Normal range of motion. Cervical back: Normal range of motion. Skin: General: Skin is warm and dry. Capillary Refill: Capillary refill takes less than 2 seconds. Neurological: Mental Status: She is alert and oriented to person, place, and time. Cranial Nerves: No cranial nerve deficit. Procedures Recent Results (from the past 24 hours) Comprehensive Metabolic Panel (Cmp) [id number] Collection Time: 04/29/24 5:41 PM Result Value Ref Range SODIUM 139 136 - 145 mmol/L POTASSIUM 3.5 3.5 - 5.1 mmol/L CHLORIDE 105 98 - 107 mmol/L CO2, VENOUS 25 22 - 30 mmol/L ANION GAP 12.5 <18.0 mmol/L GLUCOSE 88 70 - 99 mg/dL BUN 5 5 - 18 mg/dL CREATININE, BLOOD 0.83 0.60 - 1.00 mg/dL BUN/CREATININE RATIO 6 (L) 12 - 20 ratio TOTAL PROTEIN 7.7 6.0 - 8.0 g/dL ALBUMIN 4.5 3.5 - 5.0 g/dL A/G RATIO 1.4 1.0 - 2.2 CALCIUM 9.0 8.7 - 10.5 mg/dL T BILI 0.7 0.2 - 1.2 mg/dL SGOT (AST) 17 <43 U/L SGPT (ALT) 7 <56 U/L ALKALINE PHOSPHATASE 73 40 - 150 U/L GFR, ESTIMATED >60 >=60 GFR, EST. GFR, EST. NONAFRICAN CBC with Auto Differential Collection Time: 04/29/24 5:41 PM Result Value Ref Range WBC 6.73 4.00 - 12.00 10(3)/mcL RBC 4.98 3.80 - 5.30 10(6)/mcL HEMOGLOBIN (HGB) 14.8 12.0 - 15.8 g/dL HEMATOCRIT (HCT) 42.5 36.0 - 47.0 % MCV 85.3 82.0 - 96.0 fL MCH 29.7 26.0 - 34.0 pg MCHC 34.8 31.0 - 36.0 g/dL PLATELET COUNT 320 140 - 440 10(3)/mcL RDW 11.6 (L) 11.8 - 15.5 % MPV 9.6 (L) 9.7 - 12.4 fL NEUTROPHILS 65.8 47.0 - 73.0 % LYMPHOCYTES 26.7 18.0 - 42.0 % MONOCYTES 7.1 4.0 - 12.0 % EOSINOPHILS 0.1 0.0 - 5.0 % BASOPHILS 0.3 0.0 - 1.0 % ABSOLUTE NEUTROPHILS 4.42 1.60 - 7.70 10(3)/mcL ABSOLUTE LYMPHOCYTES 1.80 1.30 - 3.20 10(3)/mcL ABSOLUTE MONOCYTES 0.48 0.20 - 1.00 10(3)/mcL ABSOLUTE EOSINOPHIL 0.01 0.00 - 0.40 10(3)/mcL ABSOLUTE BASOPHILS 0.02 0.00 - 0.10 10(3)/mcL NRBC PER 100 WBC 0 URINALYSIS REFLEX IF INDICATED BY ABNORMAL RESULTS Collection Time: 04/29/24 5:45 PM Result Value Ref Range SPECIFIC GRAVITY 1.010 1.003 - 1.030 URINE PH 6.0 5.0 - 9.0 WBC ESTERASE 25 /ul (A) Negative NITRITE Negative Negative PROTEIN, RANDOM URINE Negative Negative URINE GLUCOSE, QUAL Negative Negative URINE KETONES Negative Negative UROBILINOGEN Normal Normal mg/dL URINE BLOOD Negative Negative johnathan/ul URINALYSIS COLOR Yellow URINALYSIS CLARITY Clear WBC (Urine) 0-5 Negative, 0-5 /hpf URINE RBC'S Negative Negative, 0-2 /hpf EPITHELIAL CELLS Small amount /lpf BACTERIA, URINE Negative Negative /hpf RSV,SARS-COV-2,INFLUENZA A&B BY PCR Collection Time: 04/29/24 5:45 PM Specimen: Nasopharyngeal; Swab Result Value Ref Range FLU A Negative Negative, Error FLU B Negative Negative RESP SYNC VIRUS Negative Negative SARSCOV2 NOT DETECTED (Reference Range for this test is Not Detected) POCT Urine HCG () Collection Time: 04/29/24 5:51 PM Result Value Ref Range POC URINE Negative POC URINE CONTROL Acid Mixer Pass Imaging Results CT RENAL STONE STUDY (ABDOMEN AND PELVIS W/O CONTRAST) (Final result) Result time 04/29/24 18:27:50 Final result by Ramakrishna Reynoso MD (04/29/24 18:27:50) Impression: IMPRESSION: 1. No hydronephrosis or hydroureter. No calculi in the urinary tract. 2. Circumferential thickening of the urinary bladder wall which is could be due to incomplete distension. However, cystitis remains a possibility in the appropriate clinical setting. Correlation with urinalysis is suggested. Narrative: EXAM DESCRIPTION: CT RENAL STONE STUDY (ABDOMEN [...] Ramakrishna Reynoso M.D. AT: AT Report ID: [id number] Reading Location: [place] [address] Labs Reviewed CMP (COMPREHENSIVE METABOLIC PANEL) - Abnormal; Notable for the following components: Result Value BUN/CREATININE RATIO 6 (*) All other components within normal limits URINALYSIS REFLEX IF INDICATED BY ABNORMAL RESULTS - Abnormal; Notable for the following components: WBC ESTERASE 25 /ul (*) All other components within normal limits CBC WITH AUTO DIFFERENTIAL - Abnormal; Notable for the following components: RDW 11.6 (*) MPV 9.6 (*) All other components within normal limits RSV,SARS-COV-2,INFLUENZA A&B BY PCR - Normal COMPLETE BLOOD COUNT (CBC) WITH DIFF Narrative: The following orders were created for panel order CBC with Diff [id number]. Procedure Abnormality Status --------- ------ CBC with Auto Differential[[id number]] Abnormal Final result Please view results for these tests on the individual orders. POCT URINE HCG () CT RENAL STONE STUDY (ABDOMEN AND PELVIS W/O CONTRAST) Final Result IMPRESSION: 1. No hydronephrosis or hydroureter. No calculi in the urinary tract. 2. Circumferential thickening of the urinary bladder wall which is could be due to incomplete distension. However, cystitis remains a possibility in the appropriate clinical setting. Correlation with urinalysis is suggested. URINALYSIS REFLEX IF INDICATED BY ABNORMAL RESULTS Final Result CBC with Diff [id number] Final Result Comprehensive Metabolic Panel (Cmp) [id number] Final Result Medical Decision Making Amount and/or Complexity of Data Reviewed Labs: ordered. Radiology: ordered. Clinical Impression 1. Renal colic, bilateral Disposition: Discharge Labs are unremarkable. CT renal stone study is unremarkable. Urinalysis is unremarkable. Patient with no apparent acute surgical condition at this time. I I have done teaching at the bedside and what to symptomatolgy to watch out for and when to return to the ED. The flank pain is likelydue to renal colic. The patient remained stable throughout their ED stay. My clinical impression was discussed with thepatient/family. Labs and radiology results were reviewed with them. I gave them the opportunity to ask questions, and addressed them as completely as possible given the information available at present. The therapeutic plan was discussed, advised to take medications as instructed, instructions weregiven and the importance of primary care follow up was stressed and encouraged. The patient/family voiced understanding of the plan, indications to return, and the need for follow up. Cosigned by Benny Boucher MD at 04/29/2024 10:52 PM WORD PROCESSING OPERATOR PROCESSING OPERATOR PROCESSING OPERATOR * Nevaeh Lainez RN - 04/29/2024 5:31 PM CST Pt complains of bilateral flank pain, but is more painful on the left. Pt describes the pain as a burning sensation. Pt states she has had kidney issues in past, but is unable to give much details onit. PROCESSING OPERATOR documented in this encounter Miscellaneous Notes * PatientPass Patient Instructions - Lela Alejandro APRN, LABORATORY [employer] - 04/29/2024 6:43 PM CST Images from the original note were not included. Patient Education Table of Contents Renal Colic To view videos and all your education online visit, [email or web address] or scan this QR code with your smartphone. Access to this content will in one year. Renal Colic Renal colic is pain that is caused by a kidney stone. The pain can be sharp and very bad. It may befelt in your back, belly, side, or groin. It can cause nausea. Renal colic can come and go. Follow these instructions at home: Medicines Take worc-lgi-cwimflc and prescription medicines only as told by your doctor. If told, take steps to prevent problems with pooping (constipation). You may need to: ? Take medicines. You will be told what medicines to take. ? Eat foods that are high in fiber. These include beans, whole grains, and fresh fruits and vegetables. ? Limit foods that are high in fat and sugar. These include fried or sweet foods. Ask your doctor if you should avoid driving or using machines while you are taking your medicine. Eating and drinking Drink enough fluid to keep your pee (urine) pale yellow. You may be told to drink at least 8?10 glasses of water each day. Follow instructions from your doctor about what you may eat and drink. If told, change your diet. You may need to eat: ? Less salt (sodium). Eat less than 2 grams (2,000 mg) of salt per day. ? Less meat, poultry, fish, and eggs. ? More fruits and vegetables. Try not to eat spinach, rhubarb, sweet potatoes, or nuts. General instructions Collect pee samples as told by your doctor. Strain your pee every time you pee (urinate), as told by your doctor. Use the strainer that your doctor gives you. Do not throw out the kidney stone after you pass it. Keep the stone so it can be tested by your doctor. Your doctor may give you more instructions. Make sure you know what you can and cannot do. Contact a doctor if: You have a fever or chills. Your pee smells bad or looks cloudy. You have pain or burning when you pee. You have blood in your pee. Get help right away if: The pain in your side or groin gets worse all of a sudden. You get confused. You pass out. This information is not intended to replace advice given to you by your health care provider. Make sure you discuss any questions you have with your health care provider. Document Released: 2008-08-09 Document Updated: 2022-11-17 Document Reviewed: 2022-11-17 [employer] Patient Education ? 2023 [employer] Electronically signed by Lela Alejandro, LIFE TRAINER, LABORATORY [employer] at 04/29/2024 6:43 PM WORD PROCESSING OPERATOR documented in this encounter Plan of Treatment Not on file documented as of this encounter Procedures Procedure Name Priority Date/Time Associated Diagnosis Comments CT RENAL STONE STUDY (ABDOMEN AND PELVIS W/O CONTRAST) Stat with Interpretation 04/29/2024 6:10 PM WORD PROCESSING OPERATOR POCT URINE HCG () STAT 04/29/2024 5:51 PM WORD PROCESSING OPERATOR URINALYSIS REFLEX IF INDICATED BY ABNORMAL RESULTS STAT 04/29/2024 5:45 PM WORD PROCESSING OPERATOR RSV,SARS-COV-2,INF LUENZA A&B BY PCR STAT 04/29/2024 5:45 PM WORD PROCESSING OPERATOR CBC WITH AUTO DIFFERENTIAL STAT 04/29/2024 5:41 PM WORD PROCESSING OPERATOR CMP (COMPREHENSIVE METABOLIC PANEL) STAT 04/29/2024 5:41 PM WORD PROCESSING OPERATOR COMPLETE BLOOD COUNT (CBC) WITH DIFF STAT 04/29/2024 5:41 PM WORD PROCESSING OPERATOR documented in this encounter Results * CT RENAL STONE STUDY (ABDOMEN AND PELVIS W/O CONTRAST) (04/29/2024 6:10 PM WORD PROCESSING OPERATOR) Anatomical Region Laterality Modality Abdomen N/A Computed Tomogra phy 04/29/2024 6:25 PM WORD PROCESSING OPERATOR Impressions 04/29/2024 6:27 PM WORD PROCESSING OPERATOR IMPRESSION: 1. No hydronephrosis or hydroureter. No calculi in the urinary tract. 2. Circumferential thickening of the urinary bladder wall which is could be due to incomplete distension. However, cystitis remains a possibility in the appropriate clinical setting. Correlation with urinalysis is suggested. Narrative 04/29/2024 6:27 PM WORD PROCESSING OPERATOR EXAM DESCRIPTION: CT RENAL STONE STUDY (ABDOMEN [...] Ramakrishna Reynoso M.D. AT: AT Report ID: [id number] Reading Location: [id number] Procedure Note Ramakrishna Reynoso MD - 04/29/2024 [...] Ramakrishna Reynoso M.D. AT: AT Report ID: [id number] Reading Location: [id number] IMPRESSION: 1. No hydronephrosis or hydroureter. No calculi in the urinary tract. 2. Circumferential thickening of the urinary bladder wall which is could be due to incomplete distension. However, cystitis remains a possibility in the appropriate clinical setting. Correlation with urinalysis is suggested. us Lela Alejandro LIFE TRAINER, LABORATORY [employer] IMG CT ORDERABLES Fin al Result * POCT Urine HCG () (04/29/2024 5:51 PM WORD PROCESSING OPERATOR) Pathologist [facility] POC URINE Negative POC URINE CONTROL Acid Mixer Pass Urine 04/29/2024 5:51 PM WORD PROCESSING OPERATOR Lela Alejandro APRN, LABORATORY [employer] POINT OF CARE TESTING (MANUAL) Final Result * RSV,SARS-COV-2,INFLUENZA A&B BY PCR (04/29/2024 5:45 PM WORD PROCESSING OPERATOR) Pathologist [facility] FLU A Negative Negative, Error 04/29/2024 6:38 PM WORD PROCESSING OPERATOR [facility] FLU B Negative Negative 04/29/2024 6:38 PM WORD PROCESSING OPERATOR [facility] RESP SYNC VIRUS Negative Negative 6:38 PM WORD PROCESSING OPERATOR [facility] SARSCOV2 NOT DETECTED (Reference Range for this test is Not Detected) 04/29/2024 6:38 PM WORD PROCESSING OPERATOR [facility] Comment:This test was perfor med by a Reverse Commodities Manager PCR Method. Swab NASOPHARYNGEAL STRUCTURE / Unknown Non-Phlebotomy Collection / Unknown 04/29/2024 5:45 PM WORD PROCESSING OPERATOR 04/29/2024 5:58 PM WORD PROCESSING OPERATOR Lela Alejandro APRN, LABORATORY [employer] MICROBIOLOGY - GENERA L ORDERABLES Final Result [facility] [address] [place] [address] * (ABNORMAL) URINALYSIS REFLEX IF INDICATED BY ABNORMAL RESULTS (04/29/2024 5:45 PM WORD PROCESSING OPERATOR) [facility] SPECIFIC GRAVITY 1.010 1.003 - 1.030 04/29/2024 6:18 PM WORD PROCESSING OPERATOR [facility] URINE PH 6.0 5.0 - 9.0 04/29/2024 6:18 PM WORD PROCESSING OPERATOR [facility] WBC ESTERASE 25 /ul(A) Negative 04/29/2024 6:18 PM WORD PROCESSING OPERATOR [facility] NITRITE Negative Negative 04/29/2024 6:18 PM WORD PROCESSING OPERATOR [facility] PROTEIN, RANDOM URINE Negative Negative 04/29/2024 6:18 PM WORD PROCESSING OPERATOR [facility] URINE GLUCOSE, QUAL Negative Negative 04/29/2024 6:18 PM WORD PROCESSING OPERATOR [facility] URINE KETONES Negative Negative 04/29/2024 6:18 PM WORD PROCESSING OPERATOR [facility] UROBILINOGEN Normal Normal mg/dL 04/29/2024 6:18 PM WORD PROCESSING OPERATOR [facility] URINE BLOOD Negative Negative johnathan/ul 04/29/2024 6:18 PM WORD PROCESSING OPERATOR [facility] URINALYSIS COLOR Yellow 04/29/19 6:18 PM WORD PROCESSING OPERATOR [facility] URINALYSIS CLARITY Clear 04/29/2024 6:18 PM WORD PROCESSING OPERATOR [facility] WBC (Urine) 0-5 Negative, 0-5 /hpf 04/29/2024 6:18 PM WORD PROCESSING OPERATOR [facility] URINE RBC'S Negative Negative, 0-2 /hpf 04/29/2024 6:18 PM WORD PROCESSING OPERATOR [facility] EPITHELIAL CELLS Small amount /lpf 2024 6:18 PM WORD PROCESSING OPERATOR [facility] BACTERIA, URINE Negative Negative /hpf 04/29/2024 6:18 PM WORD PROCESSING OPERATOR [facility] Urine URINE SPECIMEN OBTAINED BY CLEAN CATCH PROCEDURE / Unknown Non-Phlebotomy Collection / Unknown 04/29/2024 5:45 PM WORD PROCESSING OPERATOR 04/29/2024 5:58 PM WORD PROCESSING OPERATOR us Lela Alejandro LIFE TRAINER, LABORATORY [employer] URINE ORDERABLES Debbie l Result [facility] [address] [place] [address] * (ABNORMAL) CBC with Auto Differential (04/29/2024 5:41 PM WORD PROCESSING OPERATOR) WBC 6.73 4.00 - 12.00 10(3)/mcL 04/29/2024 6:02 PM WORD PROCESSING OPERATOR [facility] RBC 4.98 3.80 - 5.30 10(6)/mcL 04/29/2024 6:02 PM [facility] HEMOGLOBIN (HGB) 14.8 12.0 - 15.8 g/dL 04/29/2024 6:02 PM [facility] HEMATOCRIT (HCT) 42.5 36.0 - 47.0 % 04/29/2024 6:02 PM [facility] MCV 85.3 82.0 - 96.0 fL 04/29/2024 6:02 PM [facility] MCH 29.7 26.0 - 34.0 pg 04/29/2024 6:02 PM [facility] MCHC 34.8 31.0 - 36.0 g/dL 04/29/2024 6:02 PM [facility] PLATELET COUNT 320 140 - 440 10(3)/[facility] 04/29/2024 6:02 PM [facility] RDW 11.6(L) 11.8 - 15.5 % 04/29/2024 6:02 PM [facility] MPV 9.6(L) 9.7 - 12.4 fL 04/29/2024 6:02 PM [facility] NEUTROPHILS 65.8 47.0 - 73.0 % 04/29/2024 6:02 PM [facility] LYMPHOCYTES 26.7 18.0 - 42.0 % 04/29/2024 6:02 PM [facility] MONOCYTES 7.1 4.0 - 12.0 % 04/29/2024 6:02 PM [facility] EOSINOPHILS 0.1 0.0 - 5.0 % 04/29/2024 6:02 PM [facility] BASOPHILS 0.3 0.0 - 1.0 % 04/29/2024 6:02 PM [facility] ABSOLUTE NEUTROPHILS 4.42 1.60 - 7.70 10(3)/mcL 04/29/2024 6:02 PM [facility] ABSOLUTE LYMPHOCYTES 1.80 1.30 - 3.20 10(3)/mcL 04/29/2024 6:02 PM WORD PROCESSING OPERATOR [facility] ABSOLUTE MONOCYTES 0.48 0.20 - 1.00 10(3)/mcL 04/29/2024 6:02 PM WORD PROCESSING OPERATOR [facility] ABSOLUTE EOSINOPHIL 0.01 0.00 - 0.40 10(3)/mcL 04/29/2024 6:02 PM [facility] ABSOLUTE BASOPHILS 0.02 0.00 - 0.10 10(3)/[facility] 04/29/2024 6:02 PM [facility] NRBC PER 100 WBC 0 04/29/19 6:02 PM [facility] Blood Venipuncture / Unknown 04/29/2024 5:41 PM WORD PROCESSING OPERATOR 04/29/2024 5:58 PM WORD PROCESSING OPERATOR Lela Alejandro LIFE TRAINER, LABORATORY [employer] HEMATOLOGY ORDERABLES Final Result [facility] [address] [place] [address] * (ABNORMAL) Comprehensive Metabolic Panel (Cmp) [id number] (04/29/2024 5:41 PM WORD PROCESSING OPERATOR) SODIUM 139 136 - 145 mmol/L 04/29/2024 6:23 PM [facility] POTASSIUM 3.5 3.5 - 5.1 mmol/L 04/29/2024 6:23 PM [facility] CHLORIDE 105 98 - 107 mmol/L 04/29/2024 6:23 PM [facility] CO2, VENOUS 25 22 - 30 mmol/L 04/29/2024 6:23 PM [facility] ANION GAP 12.5 <18.0 mmol/L 04/29/2024 6:23 PM [facility] GLUCOSE 88 70 - 99 mg/dL 04/29/2024 6:23 PM [facility] BUN 5 5 - 18 mg/dL 04/29/2024 6:23 PM [facility] CREATININE, BLOOD 0.83 0.60 - 1.00 mg/dL 04/29/2024 6:23 PM [facility] BUN/CREATININE RATIO 6(L) 12 - 20 ratio 04/29/2024 6:23 PM [facility] TOTAL PROTEIN 7.7 6.0 - 8.0 g/dL 04/29/2024 6:23 PM [facility] ALBUMIN 4.5 3.5 - 5.0 g/dL 04/29/2024 6:23 PM [facility] A/G RATIO 1.4 1.0 - 2.2 04/29/2024 6:23 PM [facility] CALCIUM 9.0 8.7 - 10.5 mg/dL 04/29/2024 6:23 PM [facility] T BILI 0.7 0.2 - 1.2 mg/dL 04/29/2024 6:23 PM [facility] SGOT (AST) 17 <43 U/L 04/29/2024 6:23 PM [facility] SGPT (ALT) 7 <56 U/L 04/29/2024 6:23 PM [facility] ALKALINE PHOSPHATASE 73 40 - 150 U/L 04/29/2024 6:23 PM [facility] GFR, ESTIMATED >60 >=60 04/29/2024 6:23 PM [facility] Comment: Creatinine Clearance is the preferred criteria for selecting drug dose adjustments in renally impaired patients. The GFR is provided as additional pertinent clinical information. GFR is reported in mL/min/1.73 sq m. Calculation based on the Chronic Kidney Disease Epidemiology Collaboration (CKD- EPI) equation refit without adjustment for race. UNABLE TO CALCULATE GFR, EST. 025 6:23 PM [facility] GFR, EST. NONAFRICAN 04/29/2024 6:23 PM [facility] Blood Venipuncture / Unknown 04/29/2024 5:41 PM WORD PROCESSING OPERATOR 04/29/2024 5:58 PM WORD PROCESSING OPERATOR us Lela Alejandro APRN, CNP CHEMISTRY ORDERABLES Final Result [facility] [place] [address] documented in this encounter Visit Diagnoses Diagnosis Renal colic, bilateral- Primary Renal colic documented in this encounter Administered Medications Inactive Administered Medications - up to 3 most recent administrations Medication Order MAR Action Action Date Dose Rate Site 0.9 % sodium chloride solution at 999 mL/hr, Intravenous, ONCE, 1 dose, On 04/29/24 at 1800 New Bag 04/29/2024 5:49 PM WORD PROCESSING OPERATOR 1,000 mL 999 mL/hr ketorolac (TORADOL) injection 15 mg 15 mg, Intravenous, ONCE, 1 dose, On 04/29/24 at 1800 Given 04/29/2024 5:49 PM WORD PROCESSING OPERATOR 15 mg documented in this encounter Active and Recently Administered Medications Times are shown in WORD PROCESSING OPERATOR. Scheduled Medication Order 04/27/2024 04/28/2024 04/29/2024 0.9 % sodium chloride solution (COMPLETED) at 999 mL/hr, Intravenous, ONCE, 1 dose, On 04/29/24 at 1800 1749 (New Bag - Prov ider: Melisa Aleman RN)1849 (Stopped - Provider: Vira Millan RN) ketorolac (TORADOL) injection 15 mg (COMPLETED) 15 mg, Intravenous, ONCE, 1 dose, On 04/29/24 at 1800 1749 (Given - Provid er: Melisa Aleman RN) documented in this encounter Additional Health Concerns Infection Onset Date Last Indicated Resolved Time COVID - 19 04/29/2024 04/29/2024 04/29/2024 6:38 PM WORD PROCESSING OPERATOR documented as of this encounter Care Teams Clinical Quality Assurance Associate Relationship Specialty Start Date End Date Jackie Ogden MD [address] [place] [id number] PCP - General Family Medicine 04/29/24 documented as of this encounter
--- OUTSIDE RECORDS SUMMARY | 2024-05-01 18:43 | XMS_ITS | Referral Summary ---
Author Organization [facility] Address [address] [place] [address] Care Team Providers Care Chronometer Adjuster Name Role Phone Beni Jerez DO Primary Care Provider + Allergies Active Allergy Reactions Criticality Noted Date Comments Amoxicillin-Pot Clavulanate RASH 03/08/19 15 Eggs Or Egg-Derived Products (Food Or Med) RASH Low 01/02/2016 Mosquito (Diagnostic) Fever Medium 01/02/2016 Penicillins RASH Low 03/08/2014 Pseudoephedrine Other (See Comments) 03/05/2014 Triaminic RASH High 05/04/2011 Medications Medication Sig Dispensed Refills Start Date End Date Status sertraline (ZOLOFT) 25 MG tablet Take 25 mg by mouth every morning. 05/25/2022 Active predniSONE (DELTASONE) 20 MG tablet 04/07/2022 Active ondansetron (ZOFRAN ODT) 4 MG disintegrating tablet 06/14/2022 Active atomoxetine (STRATTERA) 18 MG capsule TAKE 1 CAPSULE BY MOUTH EVERY DAY IN THE MORNING 03/17/2022 Active atomoxetine (STRATTERA) 25 MG capsule TAKE 1 CAPSULE BY MOUTH EVERY DAY IN THE MORNING 04/20/2022 Active methylpheniDATE (METADATE ER) 20 MG ER tablet Take 20 mg by mouth every morning. 12/12/2021 Active amitriptyline (ELAVIL) 10 MG tablet Take 10 mg by mouth nightly. Active Active Problems Problem Noted Date Diagnosed Date Arthralgia 06/30/2022 Muscular deconditioning 06/30/2022 Chronic pain of both shoulders 06/30/2022 Posture abnormality 06/30/2022 Shoulder impingement 06/30/2022 Scapular dyskinesis 06/30/2022 Immunizations Name Administration Dates Next Due [facility] 12Y+ (Requires Dilution) 04/19/2021 DTaP, 5 Pertussis Antigens 08/26/2006,,07/22/2005,05/18,03/19/2005 DTaP/IPV 08/19/2009 HIB (HbOC) 01/12/2006, 6,05/18/2005,03/19 HIB, Unspecified Formulation 01/12/2006, 07/22/2005,05/18/2005,03/19 HPV 9-Valent 10/02/2020,08/01/2018 Hep A, ped/adol, 2 dose 06/13/2007,08/26/2006 Hep B, Unspecified Formulation 07/22/2005,2005,2004 IPV 08/19/2009, 6,05/18/2005,03/19 MMR 08/19/2009,01/12/2006 Measles Mumps Rubella Varicella 08/19/2009 Meningococcal Conjugate MCV4 P (Menactra) 12/20/2016 Pneumococcal Conjugate 7 Valent 01/13/20 06,07/22/2005,05/18/2005,03/19 Pneumococcal conjugate PCV 13 07/07/2010 Tdap 10/31/2016,11/01/2015 Varicella 08/19/2009,01/12/2006 Social History Tobacco Use Types Packs/Day Years Used Date Smoking Tobacco: Never Assessed Inadequate Housing Answer Date Recorded Social Determinants: Housing (Overall Score Help er) 0 02/25/2022 Sex and Gender Information Value Date Recorded Sex Assigned at Not on file Gender Identity Not on file Sexual Orientation Not on file Last Filed Vital Signs Vital Sign Reading Time Taken Comments Blood Pressure 115/77 06/21/2022 1:15 PM CDT Pulse 80 06/21/2022 1:15 PM CDT Temperature - - Respiratory Rate - - Oxygen Saturation - - Inhaled Oxygen Concentration - - Weight 47.7 kg (105 lb 0.8 oz) 06/21/2022 1:15 P M CDT Height 151.7 cm (4' 11.72 ) 06/21/2022 1:15 PM C DT Body Mass Index 20.71 06/21/2022 1:15 PM CDT Body Mass Index Percentile 45.11% 06/21/2022 1:1 5 PM CDT Growth Chart: CDC (Girls, 2- 20 Years) Plan of Treatment Not on file Care Teams Chronometer Adjuster Relationship Specialty Start Date End Date Beni Jerez DO [address] [place] [address] PCP - General Family Practice 06/21/22
--- OUTSIDE RECORDS SUMMARY | 2024-05-01 18:43 | XMS_ITS | Clinical Summary ---
Author Organization [facility] Address [address] [place] [address] Care Team Providers Care Government Program Manager Name Role Phone Beni Jerez DO Primary [...] 06/30/2022 Immunizations Name Administration Dates Next Due [facility] 12Y+ (Requires Dilution) 04/19/2021 DTaP, 5 Pertussis [...] on file Sexual Orientation Not on file Growth Chart Information Age Height Weight [id number] th Percentile BMI Percentile Head Circum Head Circum Percentile Date 16 years 151.7 cm (4' 11.72 ) 47.7 kg (105 lb 0.8 oz) 45.11%* 2022 * [facility] (Girls, 2-20 Years) Last Filed [...] 06/21/2022 1:1 5 PM CDT Growth Chart: [facility] (Girls, 2- 20 Years) Plan of Treatment Health Maintenance Due Date Last Done Comments Annual Physical (ages 3 - 21) 12/26/2007 Depression Screening 2016 Meningococcal Serogroup B Vaccine (1 of 2 - Standard) 2020 Chlamydia and Gonorrhea Screening (if sexually active) 2022 COVID-19 Vaccine (2023- season) 2023 04/19/2021, 03/27/2021 Influenza Vaccine (#1) 2023 DTaP/Tdap/Td Vaccine (8 - Td or Tdap) 10/31/2026 10/31/2016, 11/01/2015, 08/19/2009, Additional history exists Hepatitis B Vaccine Completed 07/22/2005, 07/22/2005, 03/19/2005, Additional history exists Hepatitis A Vaccine Completed 06/13/2007, Varicella Vaccine Completed 08/19/2009, , 01/12/2006 Pneumococcal Vaccine 0-49 Aged Out 2010, 01/12/2006, 07/22/2005, Additional history exists No longer eligible based on patient's age to complete this topic Meningococcal Vaccine Aged Out 12/20/2016 No lars lily eligible based on patient's age to complete this topic HPV Vaccine Completed 10/02/2020, 08/01/2018 Care Teams Government Program Manager Relationship Specialty Start Date End Date Beni Jerez DO [address] [place] [address] PCP - General Family Practice 06/21/22
--- OUTSIDE RECORDS SUMMARY | 2024-05-01 18:43 | XMS_ITS | Referral Summary ---
Author Organization [facility] Address [address] [place] [address] Care Team Providers Care Bisque Tile Burner Name Role Phone Jackie Ogden MD Primary Care Provider [phone] Allergies Active Allergy Reactions Criticality Noted Date Comments Amoxicillin-Pot Clavulanate RASH 03/08/2014 Buspirone ANXIETY Medium 10/24/2023 Worsening anxiety Egg RASH Low 01/02/2016 Eggs Or Egg-Derived Products RASH Low 01/02/2016 Hydroxyzine ANXIETY Medium 09/06/2023 Worsening anxiety per patient Mosquito (Diagnostic) FEVER Medium 01/02/2016 Mosquitos FEVER Medium 10/02/2016 Other RASH Low 01/02/2016 Triaminic - rash Penicillins 07/19/2016 Pseudoephedrine OTHER (SEE COMMENTS) 03/05/2014 Triaminic RASH High 05/04/2011 Medications * This document contains information received from the source organization and may not represent a complete record from that organization. ketoconazole 2 % External CreamIndications: Skin irritation Apply 1 Application topically daily. 80 g 1 4 Active ALPRAZolam (XANAX) 0.25 MG Oral TabIndications:An xiety and depression Take 1 tablet (0.25 mg total) by mouth 2 (two) times daily as needed for Anxiety. 20 tablet 4 Active atomoxetine 25 MG Oral CapIndications:At tention deficit hyperactivity disorder (ADHD), unspecified ADHD type Take 1 capsule (25 mg total) by mouth every morning. 90 capsule 4 Active venlafaxine ER 75 MG Oral Capsule SR 24 HrIndications:Anx iety and depression Take 1 capsule (75 mg total) by mouth daily. 90 capsule Active Active Problems Problem Noted Date Diagnosed Date Allergic rhinitis due to allergen 08/09/2022 Fluid level behind tympanic membrane of both ear s 08/09/2022 Intractable abdominal migraine 04/20/2016 Vomiting 01/02/2016 Abdominal pain, unspecified location 01/02/2016 Immunizations Name Administration Dates Next Due Covid-19 Vaccine Pfizer 30 mcg/0.3 ml 04/19/2021 ,03/27/2021 DTAP 08/26/2006, 7,07/22/2005,2005,03/19/2005 DTAP-IPV 08/19/2009 HEP A,Ped/Adol,(2 Dose) 06/13/2007,08/26/2006 HEP B, Ped/Adol 07/22/2005,03/19/2005,2004 HIB 01/12/2006, 6,05/18/2005,2005 Hep B, Unspecified Formulation 07/22/2005,2005,2004 Hib, Unspecified Formulation 01/12/2006, 07/22/2005,05/18/2005,2005 Hpv Virus Vaccine 9 Susi Im 10/02/2020,08/01/2018 IPV 08/19/2009, 6,05/18/2005,2005 MMR 08/19/2009,01/12/2006 MMR/Varicella Combined 08/19/2009 Meningococcal-Menactra 10/19/2022,12/20/2016 Pneumococcal (Prevnar 13) 07/07/2010 Pneumococcal (Prevnar 7) 01/12/2006,07/05,05/18/2005,2005 TDAP 10/31/2016,11/01/2015 Varicella 08/19/2009,01/12/2006 Social History Tobacco Use Types Packs/Day Years Used Date Smoking Tobacco: Never Smokeless Tobacco: Never Tobacco Cessation:Counseling Given: Not Answered Alcohol Use Standard Drinks/Week Comments No 0 (1 standard drink = 0.6 oz pur e alcohol) PHQ-2 Answer Date Recorded PHQ-2 SCORE 3 01/11/2024 PHQ-9 Answer Date Recorded PHQ-9 TOTAL SCORE 8 01/11/2024 Comments No Sex and Gender Information Value Date Recorded Sex Assigned at Not on file Legal Sex Female 2:23 PM CDT Gender Identity Not on file Sexual Orientation [place] 09/19/2023 12 :26 PM CDT Sexual Orientation Lesbian 09/19/2023 12 :26 PM CDT Last Filed Vital Signs Vital Sign Reading Time Taken Comments Blood Pressure 90/62 08/11/2023 4:01 PM CDT Pulse 72 08/11/2023 4:01 PM CDT Temperature 36.1 C (97 F) 08/11/2023 4:01 PM CDT Respiratory Rate 16 08/11/2023 4:01 PM CDT Oxygen Saturation 100% 06/16/2022 3:15 PM CDT Inhaled Oxygen Concentration - - Weight 44 kg (97 lb) 08/11/2023 4:01 PM CDT Height 149.9 cm (4' 11 ) 08/11/2023 4:01 PM CDT Body Mass Index 19.59 08/11/2023 4:01 PM CDT Body Mass Index Percentile 24.73% 08/11/2023 4:0 1 PM CDT Growth Chart: [facility] (Girls, 2- 20 Years) Functional Status * Hearing Problems? Answer Date of Assessment Author Yes 08/11/2023 4:03 PM CDT Hannah Malin MA * Vision Problems? Answer Date of Assessment Author No 08/11/2023 4:03 PM CDT Hannah Malin MA * Difficulty walking? Answer Date of Assessment Author No 08/11/2023 4:03 PM CDT Hannah Malin MA * Difficulty dressing or bathing? Answer Date of Assessment Author No 08/11/2023 4:03 PM EDMONDT Hannah Malin MA * Problems with daily activities? Answer Date of Assessment Author No 08/11/2023 4:03 PM CDT Hannah Malin MA Mental Status * Memory Problems? Answer Entry Date Author No 08/11/2023 4:03 PM CDT Hannah Malin MA Plan of Treatment Upcoming Encounters Date Type Department Care Team (Late st Contact Info) Description 06/15/2024 11:15 AM CDT Office Visit [facility], [facility] [address] [place] [address] [phone] Yaniv Burden MD [address], [facility] [address] [place] [address] Insurance [facility] DAVID ABURTO [id number] [facility] Care Teams Bisque Tile Burner Relationship Specialty Start Date End Date Jackie Ogden MD [address] [place] [phone] PCP - General Family Medicine 06/08/21
--- OUTSIDE RECORDS SUMMARY | 2024-05-01 18:43 | XMS_ITS | Clinical Summary ---
Author Organization [facility] Address [address] [place] [address] Care Team Providers Care Associate Professor Of Pathology Name Role Phone Jackie Cole MD Primary Care Provider Allergies Active Allergy Reactions Criticality Noted Date Comments Amoxicillin-Pot Clavulanate RASH 03/08/19 15 Egg RASH Low 01/02/2016 Egg-Derived Products RASH Low 10/02/2016 Mosquitos FEVER Medium 10/02/2016 Other RASH Low 01/02/2016 Triaminic - rash Penicillins 07/19/2016 Pseudoephedrine 03/05/2014 Medications Medication Sig Dispensed Refills Start Date End Date Status amitriptyline 10 MG Oral Tab Take 10 mg by mouth nightly. 05/20/2021 Active propranolol 20 MG Oral Tab Take 20 mg by mouth 2 (two) times daily. 01/20/2021 Active Active Problems Problem Noted Date Diagnosed Date Intractable abdominal migraine 04/20/2016 Vomiting 01/02/2016 Abdominal pain, unspecified location 01/02/2016 Immunizations Name Administration Dates Next Due DTAP 08/26/2006, 7,07/22/2005,05/18/2005, DTAP-IPV 08/19/2009 HEP A,Ped/Adol,(2 Dose) 06/13/2007,08/26/2006 HEP B, Ped/Adol 07/22/2005,03/19/2005,2004 HIB 01/12/2006,07/22/2005,05/18/2005 ,03/19/2005 Hib, Unspecified Formulation 01/12/2006,07/23/19 06,05/18/2005,03/19/2005 Hpv Virus Vaccine 9 Susi Im 10/02/2020,08/01/2018 IPV 08/19/2009,07/22/2005,05/18/2005 ,03/19/2005 MMR 08/19/2009,01/12/2006 MMR/Varicella Combined 08/19/2009 Meningococcal-Menactra 12/20/2016 Pneumococcal (Prevnar 13) 07/07/2010 Pneumococcal (Prevnar 7) 01/12/2006,07/22/2005,0 05/18/2005,03/19/2005 TDAP 10/31/2016,11/01/2015 Varicella 08/19/2009,01/12/2006 Family History Medical History Relation Comments Cancer Maternal Grandfather Relation Status Comments Maternal Grandfather Social History Tobacco Use Types Packs/Day Years Used Date Smoking Tobacco: Never Smokeless Tobacco: Never Alcohol Use Standard Drinks/Week Comments No 0 (1 standard drink = 0.6 oz pur e alcohol) PHQ-2 Answer Date Recorded PHQ-2 SCORE 6 06/08/2021 Sex and Gender Information Value Date Recorded Sex Assigned at Not on file Gender Identity Not on file Sexual Orientation Not on file Last Filed Vital Signs Vital Sign Reading Time Taken Comments Blood Pressure 107/76 11/28/2020 7:30 PM CDT Pulse 82 11/28/2020 7:30 PM CDT Temperature 36.6 C (97.9 F) 11/28/2020 5:59 PM CDT Respiratory Rate 16 11/28/2020 7:30 PM CDT Oxygen Saturation 99% 11/28/2020 7:30 PM CDT Inhaled Oxygen Concentration - - Weight 52.6 kg (116 lb) 06/08/2021 5:20 PM CDT Height 149.9 cm (4' 11 ) 06/08/2021 5:20 PM CDT Body Mass Index 23.43 06/08/2021 5:20 PM CDT Body Mass Index Percentile 77.19% 06/08/2021 5:2 0 PM CDT Growth Chart: CDC (Girls, 2- 20 Years) Plan of Treatment Health Maintenance Due Date Last Done Comments Annual Depression Screen 08/02/2019 08/01/2018 Meningococcal B Vaccine (1 of 2 - Standard) 2020 Annual Physical 10/02/2021 10/02/2020, 0510/2018, 11/22/2017, Additional history exists COVID-19 Vaccine ( season) 2023 Influenza Vaccine (#1) 2023 DTaP,Tdap,and Td Vaccines (8 - Td or Tdap) 10/31/2026 10/31/2016, 11/01/2015, 08/19/2009, Additional history exists Hepatitis B Vaccines Completed 07/22/2005, 03/19/2005, 2004 Hepatitis A Vaccines Completed 06/13/2007, 08/27/19 07 MMR Vaccines Completed 08/19/2009, 08/05, 01/12/2006 Varicella Vaccines Completed 08/19/2009, 0 08/19/2009, 01/12/2006 Pneumococcal Vaccine: to 64yrs Aged Out 07/07/2010, 01/12/2006, 07/22/2005, Additional history exists No longer eligible based on patient's age to complete this topic Meningococcal Vaccine Aged Out 12/20/2016 No lars lily eligible based on patient's age to complete this topic HPV Vaccines Completed 10/02/2020, 08/01/2018 Care Teams Associate Professor Of Pathology Relationship Specialty Start Date End Date Jackie Cole MD [address] [place] [phone] PCP - General Family Medicine 06/08/21
--- OUTSIDE RECORDS SUMMARY | 2024-05-01 18:43 | XMS_ITS | Clinical Summary ---
Author Organization [facility] Address [address] [place] [address] Care Team Providers Care Glassware Finisher Name Role Phone Jackie Ogden MD Primary Care Provider [phone] Allergies Active Allergy Reactions Criticality Noted Date [...] mg total) by mouth daily. 90 capsule 4 Active Active Problems Problem Noted Date Diagnosed [...] (Prevnar 7) 01/12/2006,07/05,05/18/2005,2005 TDAP 10/31/2016,11/01/2015 Varicella 08/19/2009,01/12/2006 Family History Medical [...] 08/11/2023 4:0 1 PM CDT Growth Chart: CDC (Girls, 2- 20 Years) Plan of Treatment Upcoming Encounters Date Type Department Care Team (Late st Contact Info) Description 06/15/2024 11:15 AM CDT Office Visit [facility], [facility] [address] [place] [phone] Yaniv Burden MD [address] [facility], [address] [phone] Health Maintenance Due Date Last Done Comments Annual Physical 2004 Meningococcal B Vaccine (1 of 2 - Standard) 2020 COVID-19 Vaccine (3 - season) 2023 04/19/2021, 03/27/2021 Influenza Vaccine (#1) 2023 Annual Depression Screening 03/07/2024 01/11/2024, 0 08/01/2018 DTaP,Tdap,and Td Vaccines (8 - Td or Tdap) 10/31/2026 10/31/2016, 11/01/2015, 08/19/2009, Additional history exists Hepatitis B Vaccines Completed 07/22/2005, 07/22/2005, 03/19/2005, Additional history exists Hepatitis A Vaccines Completed 06/13/2007, 08/27/19 07 MMR Vaccines Completed 08/19/2009, 08/05, 01/12/2006 Varicella Vaccines Completed 08/19/2009, 0 08/19/2009, 01/12/2006 Pneumococcal Vaccine: to 50yrs Aged Out 07/07/2010, 01/12/2006, 07/22/2005, Additional history exists No longer eligible based on patient's age to complete this topic HPV Vaccines Completed 10/02/2020, 08/01/2018 Meningococcal Vaccine Completed 10/19/2022, 017 Insurance [facility] Care Teams Glassware Finisher Relationship Specialty Start Date End Date Jackie Ogden MD [address] [place] [phone] PCP - General Family Medicine 06/08/21
--- OUTSIDE RECORDS SUMMARY | 2024-05-01 18:43 | XMS_ITS | Clinical Summary ---
Author Organization [facility] Address [address] [place] [address] Care Team Providers Care Railroad Cook Name Role Phone Provider, Aviva Unavailable Unavailable Fabian Hanna DO Unavailable Lupe Gipson RN Unavailable Unavailable Maame Duarte APRN-ARTIFICIAL INTELLIGENCE SPECIALIST Unavailable + Not Named, Unknown Primary Care [...] 07/01/2016 9:5 4 AM CDT Growth Chart: CDC (Girls, 2- 20 Years) Plan of Treatment Health Maintenance Due Date Last Done Comments MMR VACCINES (1 of 1 - Stand lindsey series) 2005 DTAP/TD/TDAP (1 - Tdap) 12/26/2011 VARICELLA VACCINES (1 of 2 - 13+ 2-dose series) 2017 HPV VACCINE (1 - 3-dose series) 12/26/2019 MENINGOCOCCAL B VACCINES (1 of 2 - Standard) 2020 COVID-19 VACCINE ( - 2023-2 5 season) 2023 INFLUENZA VACCINES (9 YEARS AND OLDER) 11/06/2023 HEPATITIS B VACCINES (1 of 3 - 19+ 3-dose series) 12/26/2023 HEPATITIS A VACCINE Aged Out No longe r eligible based on patient's age to complete this topic MENINGOCOCCAL VACCINES Aged Out No lo nger eligible based on patient's age to complete this topic POLIO VACCINE Aged Out No longer elig ible based on patient's age to complete this topic Pneumococcal Vaccine Aged Out No long er eligible based on patient's age to complete this topic RSV Under 20 months (NIRSEVIMAB) Aged Out No longer eligible based on patient's age to complete this topic Care Teams Railroad Cook Relationship Specialty Start Date End Date Not Named, Unknown PCP - General 03/14/24 Provider, [facility] 12/03/15 Fabian Hanna DO [address] [facility] [address] [place] [address] GASTROENTEROLOGY 01/02/16 Lupe Gipson, RN Nurse 03/02/16 Maame Duarte APRN-ARTIFICIAL INTELLIGENCE SPECIALIST [address] [facility] [address] [place] [address] ENGINEERING MANAGER - Nurse Practitioner NEUROLOGY 07/01/16
[2024-05-01] MEDS: LACTATED RINGERS 1,000 ML 999 ML IV CONT (20:29)
[2024-05-01 20:43] LABS: Basophils Percent Auto 0.2 % (0.2-1.2); Eosinophils Percent Auto 0.1 % (0-4.4); Hematocrit 42.2 % (37.0-47.0); Hemoglobin 14.4 g/dL (12.0-15.0); Immature Granulocyte Absolute 0.02 K/mm3 (0.00-0.031); Immature Granulocyte Percent A 0.2 % (0-0.5); Lymphocytes Absolute Auto 2.02 K/mm3 (0.9-3.2); Lymphocytes Percent Auto 23.2 % (18.3-44.2); Mean Corpuscular HGB Conc 34.1 g/dl (32-36); Mean Corpuscular Hemoglobin 28.9 pg (26-34); Mean Corpuscular Volume 84.7 fl (80-100); Mean Platelet Volume 9.5 fl (7.4-10.4); Monocytes Absolute Auto 0.5 K/mm3 (0.1-0.6); Monocytes Percent Auto 6.1 % (2.6-8.5); Neutrophils Absolute Auto 6.1 K/mm3 (1.3-6.7); Neutrophils Percent Auto 70.2 % (45.5-73.1); Platelet Count Result 286 k/mm3 (150-375); Red Blood Count 4.98 M/mm3 (4.2-5.4); Red Cell Distribution Width 11.8 % (11.5-14.5); White Blood Count 8.7 K/mm3 (4.5-10.0)
[2024-05-01 20:45] LABS: Alanine Aminotransferase 13 U/L (6-35); Albumin Level 4.6 g/dL (3.7-5.6); Alkaline Phosphatase 68 U/L (45-116); Anion Gap 14 mmol/L (4-12); Aspartate Amino Transferase 20 U/L (14-36); Bilirubin,Total 0.8 mg/dL (0.2-1.3); Blood Urea Nitrogen 11 mg/dL (8-21); Calcium 9.7 mg/dL (8.9-10.7); Carbon Dioxide 24 mmol/L (22-30); Chloride 100 mmol/L (98-107); Estimated CRCL calculation 86 ml/min; Estimated Glomerular Filt Rate > 60; Glucose 100 mg/dL (65-110); Lipase 94 U/L (23-300); Sodium 138 mmol/L (134-143)
[2024-05-01 21:11] LABS: Influenza A QL RT-PCR Negative (Negative); Influenza B QL RT-PCR Negative (Negative); RSV RNA, RT-PCR Negative (Negative); SARS-CoV-2 RNA PCR Negative (Negative)
[2024-05-01 21:17] VITALS: BP 113/74; PULSE 80
[2024-05-01 21:20] VITALS: BP 130/79; PULSE 65
[2024-05-01 21:21] VITALS: BP 122/82; PULSE 74
--- OUTSIDE RECORDS SUMMARY | 2024-05-01 21:30 | XMS_ITS | Referral Summary ---
Author Organization [facility] Address [address] [place] [address] Care Team Providers Care Beef Cattle Farm Manager Name Role Phone Provider, Aviva Unavailable Unavailable Fabian Hanna DO Unavailable Lupe Gipson RN Unavailable Unavailable Maame Duarte APRN-FACTORY ASSEMBLER Unavailable + Not Named, Unknown Primary Care [...] 07/01/2016 9:5 4 AM CDT Growth Chart: [facility] (Girls, 2- 20 Years) Plan of Treatment Not on file Care Teams Beef Cattle Farm Manager Relationship Specialty Start Date End Date Not Named, Unknown PCP - General 03/14/24 Provider, [facility] 12/03/15 Fabian Hanna DO [address] [facility] [address] [place] [address] GASTROENTEROLOGY 01/02/16 Lupe Gipson, RN Nurse 03/02/16 Maame Duarte APRN-FACTORY ASSEMBLER [address] [facility] [address] [place], [place] [id number] POSTAL MAIL CARRIER - Nurse Practitioner NEUROLOGY 07/01/16
--- OUTSIDE RECORDS SUMMARY | 2024-05-01 21:30 | XMS_ITS | Referral Summary ---
Author Organization [facility] Address [address] [place] [address] Care Team Providers Care Industrial Relations Counselor Name Role Phone Jackie Ogden MD Primary Care Provider [phone] Allergies Active Allergy Reactions Criticality Noted Date [...] 08/11/2023 4:0 1 PM CDT Growth Chart: [facility] (Girls, 2- 20 Years) Functional Status * [...] Description 06/15/2024 11:15 AM CDT Office Visit [facility], [facility] [address] [place] [address] [phone] Yaniv Burden MD [address] [place], [facility] [address] [place] [address] Insurance [facility] DAVID ABURTO [id number] [facility] PLAN Care Teams Industrial Relations Counselor Relationship Specialty Start Date End Date Jackie Ogden MD [address] [place] [id number] PCP - General Family Medicine 06/08/21
--- OUTSIDE RECORDS SUMMARY | 2024-05-01 21:30 | XMS_ITS | Clinical Summary ---
Author Organization [facility] Address [address] [place] [address] Care Team Providers Care Photo Finish Photographer Name Role Phone Jackie Cole MD Primary [...] HPV Vaccines Completed 10/02/2020, 08/01/2018 Care Teams Photo Finish Photographer Relationship Specialty Start Date End Date Jackie Cole MD [address] [place] [phone] PCP - General Family Medicine 06/08/21
--- OUTSIDE RECORDS SUMMARY | 2024-05-01 21:30 | XMS_ITS | Clinical Summary ---
Author Organization [facility] Address [address] [place] [address] Phone Care Team Providers Care Delivery Consultant Name Role Phone Jackie Ogden MD Primary Care Provider +1 [phone] Allergies Active Allergy Reactions Criticality Noted Date [...] Department Care Team Description 04/29/2024 5:33 PM CHIROPRACTOR ASSISTANT - 04/29/2024 6:59 PM CHIROPRACTOR ASSISTANT Emergency [facility] Emergency [address] [place] [address] Lela Alejandro, CALCULATION CLERK, BONE WORKER Renal colic, bilateral Discharge Disposition: Discharged to home or Selfcare 04/29/2024 Travel from Last 3 Months Social History Tobacco Use Types Packs/Day Years Used Date Smoking Tobacco: Never Smokeless Tobacco: Never Tobacco Cessation:Counseling Given: Not Answered Comments Unknown Sex and Gender Information Value Date Recorded Sex Assigned at Not on file Legal Sex Female 5:23 PM CHIROPRACTOR ASSISTANT Gender Identity Not on file Sexual Orientation Not on file Last Filed Vital Signs Vital Sign Reading Time Taken Comments Blood Pressure 140/84 04/29/2024 6:56 PM CHIROPRACTOR ASSISTANT Pulse 99 04/29/2024 6:56 PM CHIROPRACTOR ASSISTANT Temperature 36.7 C (98 F) 04/29/2024 5:31 PM CHIROPRACTOR ASSISTANT Respiratory Rate 16 04/29/2024 6:56 PM CHIROPRACTOR ASSISTANT Oxygen Saturation 100% 04/29/2024 6:56 PM CHIROPRACTOR ASSISTANT Inhaled Oxygen Concentration - - Weight 42.6 kg (94 lb) 04/29/2024 5:31 PM CHIROPRACTOR ASSISTANT Height 152.4 cm (5') 04/29/2024 5:31 PM CHIROPRACTOR ASSISTANT Body Mass Index 18.36 04/29/2024 5:31 PM CHIROPRACTOR ASSISTANT Plan of Treatment Health Maintenance Due Date [...] CONTRAST) Stat with Interpretation 04/29/2024 6:10 PM CHIROPRACTOR ASSISTANT POCT URINE HCG () STAT 04/29/2024 5:51 PM CHIROPRACTOR ASSISTANT URINALYSIS REFLEX IF INDICATED BY ABNORMAL RESULTS STAT 04/29/2024 5:45 PM CHIROPRACTOR ASSISTANT RSV,SARS-COV-2,INF LUENZA A&B BY PCR STAT 04/29/2024 5:45 PM CHIROPRACTOR ASSISTANT CBC WITH AUTO DIFFERENTIAL STAT 04/29/2024 5:41 PM CHIROPRACTOR ASSISTANT CMP (COMPREHENSIVE METABOLIC PANEL) STAT 04/29/2024 5:41 PM CHIROPRACTOR ASSISTANT COMPLETE BLOOD COUNT (CBC) WITH DIFF STAT 04/29/2024 5:41 PM CHIROPRACTOR ASSISTANT from Last 3 Months Results * CT RENAL STONE STUDY (ABDOMEN AND PELVIS W/O CONTRAST) (04/29/2024 6:10 PM CHIROPRACTOR ASSISTANT) Anatomical Region Laterality Modality Abdomen N/A Computed Tomogra phy 04/29/2024 6:25 PM CHIROPRACTOR ASSISTANT Impressions 04/29/2024 6:27 PM CHIROPRACTOR ASSISTANT IMPRESSION: 1. No hydronephrosis or hydroureter. No calculi in the urinary tract. 2. Circumferential thickening of the urinary bladder wall which is could be due to incomplete distension. However, cystitis remains a possibility in the appropriate clinical setting. Correlation with urinalysis is suggested. Narrative 04/29/2024 6:27 PM CHIROPRACTOR ASSISTANT EXAM DESCRIPTION: CT RENAL STONE STUDY (ABDOMEN [...] Ramakrishna Reynoso M.D. AT: AT Report ID: [id number] Reading Location: [id number] Procedure Note Ramakrishna Reynoso MD - 04/29/2024 [...] Ramakrishna Reynoso M.D. AT: AT Report ID: [id number] Reading Location: [id number] IMPRESSION: 1. No hydronephrosis or hydroureter. No calculi in the urinary tract. 2. Circumferential thickening of the urinary bladder wall which is could be due to incomplete distension. However, cystitis remains a possibility in the appropriate clinical setting. Correlation with urinalysis is suggested. Lela Alejandro APRN, CNP IMG CT ORDERABLES Fin al Result * POCT Urine HCG () (04/29/2024 5:51 PM CHIROPRACTOR ASSISTANT) Pathologist [facility] POC URINE Negative POC URINE CONTROL Multifocal Button Inspector Pass Urine 04/29/2024 5:51 PM CHIROPRACTOR ASSISTANT Lela Alejandro APRN, CNP POINT OF CARE TESTING (MANUAL) Final Result * (ABNORMAL) URINALYSIS REFLEX IF INDICATED BY ABNORMAL RESULTS (04/29/2024 5:45 PM CHIROPRACTOR ASSISTANT) Pathologist [facility] SPECIFIC GRAVITY 1.010 1.003 - 1.030 04/29/2024 6:18 PM CHIROPRACTOR ASSISTANT [facility] URINE PH 6.0 5.0 - 9.0 04/29/2024 6:18 PM CHIROPRACTOR ASSISTANT [facility] WBC ESTERASE 25 /ul(A) Negative 04/29/2024 6:18 PM CHIROPRACTOR ASSISTANT [facility] NITRITE Negative Negative 04/29/2024 6:18 PM CHIROPRACTOR ASSISTANT [facility] PROTEIN, RANDOM URINE Negative Negative 04/29/2024 6:18 PM CHIROPRACTOR ASSISTANT [facility] URINE GLUCOSE, QUAL Negative Negative 04/29/2024 6:18 PM CHIROPRACTOR ASSISTANT [facility] URINE KETONES Negative Negative 04/29/2024 6:18 PM CHIROPRACTOR ASSISTANT [facility] UROBILINOGEN Normal Normal mg/dL 04/29/2024 6:18 PM CHIROPRACTOR ASSISTANT [facility] URINE BLOOD Negative Negative johnathan/ul 04/29/2024 6:18 PM CHIROPRACTOR ASSISTANT [facility] URINALYSIS COLOR Yellow 04/29/19 6:18 PM CHIROPRACTOR ASSISTANT [facility] URINALYSIS CLARITY Clear 04/29/2024 6:18 PM CHIROPRACTOR ASSISTANT [facility] WBC (Urine) 0-5 Negative, 0-5 /hpf 04/29/2024 6:18 PM CHIROPRACTOR ASSISTANT [facility] URINE RBC'S Negative Negative, 0-2 /hpf 04/29/2024 6:18 PM CHIROPRACTOR ASSISTANT [facility] EPITHELIAL CELLS Small amount /lpf 2024 6:18 PM CHIROPRACTOR ASSISTANT [facility] BACTERIA, URINE Negative Negative /hpf 04/29/2024 6:18 PM CHIROPRACTOR ASSISTANT [facility] Urine URINE SPECIMEN OBTAINED BY CLEAN CATCH PROCEDURE / Unknown Non-Phlebotomy Collection / Unknown 04/29/2024 5:45 PM CHIROPRACTOR ASSISTANT 04/29/2024 5:58 PM CHIROPRACTOR ASSISTANT us Lela Alejandro CALCULATION CLERK, BONE WORKER URINE ORDERABLES Debbie l Result [facility] [address] [place] [address] * RSV,SARS-COV-2,INFLUENZA A&B BY PCR (04/29/2024 5:45 PM CHIROPRACTOR ASSISTANT) FLU A Negative Negative, Error 04/29/2024 6:38 PM CHIROPRACTOR ASSISTANT [facility] FLU B Negative Negative 04/29/2024 6:38 PM CHIROPRACTOR ASSISTANT [facility] RESP SYNC VIRUS Negative Negative 6:38 PM CHIROPRACTOR ASSISTANT [facility] SARSCOV2 NOT DETECTED (Reference Range for this test is Not Detected) 04/29/2024 6:38 PM CHIROPRACTOR ASSISTANT [facility] Comment:This test was perfor med by a Reverse Rotary Drill Operator Helper PCR Method. Swab NASOPHARYNGEAL STRUCTURE / Unknown Non-Phlebotomy Collection / Unknown 04/29/2024 5:45 PM CHIROPRACTOR ASSISTANT 04/29/2024 5:58 PM CHIROPRACTOR ASSISTANT us Lela Alejandro CALCULATION CLERK, BONE WORKER MICROBIOLOGY - GENERA L ORDERABLES Final Result [facility] [address] [place] [address] * (ABNORMAL) CBC with Auto Differential (04/29/2024 5:41 PM CHIROPRACTOR ASSISTANT) WBC 6.73 4.00 - 12.00 10(3)/mcL 04/29/2024 6:02 PM [facility] RBC 4.98 3.80 - 5.30 10(6)/mcL 04/29/2024 6:02 PM [facility] HEMOGLOBIN (HGB) 14.8 12.0 - 15.8 g/dL 04/29/2024 6:02 PM [facility] HEMATOCRIT (HCT) 42.5 36.0 - 47.0 % 04/29/2024 6:02 PM CHIROPRACTOR ASSISTANT [facility] MCV 85.3 82.0 - 96.0 fL 04/29/2024 6:02 PM [facility] MCH 29.7 26.0 - 34.0 pg 04/29/2024 6:02 PM [facility] MCHC 34.8 31.0 - 36.0 g/dL 04/29/2024 6:02 PM [facility] PLATELET COUNT 320 140 - 440 10(3)/[facility] 04/29/2024 6:02 PM [facility] RDW 11.6(L) 11.8 - 15.5 % 04/29/2024 6:02 PM [facility] MPV 9.6(L) 9.7 - 12.4 fL 04/29/2024 6:02 PM [facility] NEUTROPHILS 65.8 47.0 - 73.0 % 04/29/2024 6:02 PM [facility] LYMPHOCYTES 26.7 18.0 - 42.0 % 04/29/2024 6:02 PM [facility] MONOCYTES 7.1 4.0 - 12.0 % 04/29/2024 6:02 PM [facility] EOSINOPHILS 0.1 0.0 - 5.0 % 04/29/2024 6:02 PM [facility] BASOPHILS 0.3 0.0 - 1.0 % 04/29/2024 6:02 PM [facility] ABSOLUTE NEUTROPHILS 4.42 1.60 - 7.70 10(3)/[facility] 04/29/2024 6:02 PM [facility] ABSOLUTE LYMPHOCYTES 1.80 1.30 - 3.20 10(3)/[facility] 04/29/2024 6:02 PM [facility] ABSOLUTE MONOCYTES 0.48 0.20 - 1.00 10(3)/[facility] 04/29/2024 6:02 PM [facility] ABSOLUTE EOSINOPHIL 0.01 0.00 - 0.40 10(3)/[facility] 04/29/2024 6:02 PM [facility] ABSOLUTE BASOPHILS 0.02 0.00 - 0.10 10(3)/[facility] 04/29/2024 6:02 PM [facility] NRBC PER 100 WBC 0 04/29/19 6:02 PM [facility] Blood Venipuncture / Unknown 04/29/2024 5:41 PM CHIROPRACTOR ASSISTANT 04/29/2024 5:58 PM CHIROPRACTOR ASSISTANT us Lela Alejandro CALCULATION CLERK, BONE WORKER HEMATOLOGY ORDERABLES Final Result [facility] [address] [place] [address] * (ABNORMAL) Comprehensive Metabolic Panel (Cmp) [id number] (04/29/2024 5:41 PM CHIROPRACTOR ASSISTANT) SODIUM 139 136 - 145 mmol/L 04/29/2024 6:23 PM CHIROPRACTOR ASSISTANT [facility] POTASSIUM 3.5 3.5 - 5.1 mmol/L 04/29/2024 6:23 PM [facility] CHLORIDE 105 98 - 107 mmol/L 04/29/2024 6:23 PM [facility] CO2, VENOUS 25 22 - 30 mmol/L 04/29/2024 6:23 PM [facility] ANION GAP 12.5 <18.0 mmol/L 04/29/2024 6:23 PM [facility] GLUCOSE 88 70 - 99 mg/dL 04/29/2024 6:23 PM [facility] BUN 5 5 - 18 mg/dL 04/29/2024 6:23 PM [facility] CREATININE, BLOOD 0.83 0.60 - 1.00 mg/dL 04/29/2024 6:23 PM [facility] BUN/CREATININE RATIO 6(L) 12 - 20 ratio 04/29/2024 6:23 PM [facility] TOTAL PROTEIN 7.7 6.0 - 8.0 g/dL 04/29/2024 6:23 PM [facility] ALBUMIN 4.5 3.5 - 5.0 g/dL 04/29/2024 6:23 PM [facility] A/G RATIO 1.4 1.0 - 2.2 04/29/2024 6:23 PM [facility] CALCIUM 9.0 8.7 - 10.5 mg/dL 04/29/2024 6:23 PM CHIROPRACTOR ASSISTANT [facility] T BILI 0.7 0.2 - 1.2 mg/dL 04/29/2024 6:23 PM CHIROPRACTOR ASSISTANT [facility] SGOT (AST) 17 <43 U/L 04/29/2024 6:23 PM CHIROPRACTOR ASSISTANT [facility] SGPT (ALT) 7 <56 U/L 04/29/2024 6:23 PM CHIROPRACTOR ASSISTANT [facility] ALKALINE PHOSPHATASE 73 40 - 150 U/L 04/29/2024 6:23 PM CHIROPRACTOR ASSISTANT [facility] GFR, ESTIMATED >60 >=60 04/29/2024 6:23 PM CHIROPRACTOR ASSISTANT [facility] Comment: Creatinine Clearance is the preferred criteria for selecting drug dose adjustments in renally impaired patients. The GFR is provided as additional pertinent clinical information. GFR is reported in mL/min/1.73 sq m. Calculation based on the Chronic Kidney Disease Epidemiology Collaboration (CKD- EPI) equation refit without adjustment for race. UNABLE TO CALCULATE GFR, EST. 025 6:23 PM CHIROPRACTOR ASSISTANT [facility] GFR, EST. NONAFRICAN 04/29/2024 6:23 PM CHIROPRACTOR ASSISTANT [facility] Blood Venipuncture / Unknown 04/29/2024 5:41 PM CHIROPRACTOR ASSISTANT 04/29/2024 5:58 PM CHIROPRACTOR ASSISTANT Lela Alejandro CALCULATION CLERK, BONE WORKER CHEMISTRY ORDERABLES Final Result [facility] [address] [place] [address] from Last 3 Months Insurance [place] Care Teams Delivery Consultant Relationship Specialty Start Date End Date Jackie Ogden MD [address] [place] [id number] PCP - General Family Medicine 04/29/24
--- OUTSIDE RECORDS SUMMARY | 2024-05-01 21:30 | XMS_ITS | Clinical Summary ---
Author Organization [facility] Address [address] [place] [address] Care Team Providers Care Casino Runner Name Role Phone Jackie Ogden MD Primary Care Provider +1 -[phone] Allergies Active Allergy Reactions Criticality Noted Date [...] History Growth Chart Information Age Height Weight Reteti-zka-fbth th Percentile BMI Percentile Head Circum Head Circum Percentile Date 17 years 152.4 cm (5') 43.1 kg (95 lb) 11.65%* 2023 * [facility] (Girls, 2-20 Years) Last Filed Vital Signs [...] 11/02/2023 1:5 8 PM CDT Growth Chart: [facility] (Girls, 2- 20 Years) Plan of Treatment [...] 08/01/2018 Meningococcal Vaccine Completed 10/19/2022, 017 Insurance [facility] PLAN [place] [id number] Care Teams Casino Runner Relationship Specialty Start Date End Date Jackie Ogden MD [address] [place] [phone] PCP - General Family Medicine 11/02/23
--- OUTSIDE RECORDS SUMMARY | 2024-05-01 21:30 | XMS_ITS | Referral Summary ---
Author Organization [facility] Address [address] [place] [address] Care Team Providers Care Pinion Sorter Name Role Phone Beni Jerez DO Primary [...] 06/30/2022 Immunizations Name Administration Dates Next Due Fast Orientation 12Y+ (Requires Dilution) 04/19/2021 DTaP, 5 Pertussis [...] of Treatment Not on file Care Teams Pinion Sorter Relationship Specialty Start Date End Date Beni Jerez DO [address] [place] [address] PCP - General Family Practice 06/21/22
--- OUTSIDE RECORDS SUMMARY | 2024-05-01 21:30 | XMS_ITS | Clinical Summary ---
Author Organization [facility] [facility] Address [address] [place] [address] Care Team Providers Care Wax Pumper Name Role Phone Jackie Ogden MD Primary Care Provider +1 -[phone] Allergies Active Allergy Reactions Criticality Noted Date [...] Description 06/15/2024 11:15 AM CDT Office Visit [facility], [facility] [address] [place] [phone] Yaniv Burden MD [address] [facility], [address] [phone] Health Maintenance Due Date Last Done Comments [...] 08/01/2018 Meningococcal Vaccine Completed 10/19/2022, 017 Insurance [facility] Care Teams Wax Pumper Relationship Specialty Start Date End Date Jackie Ogden MD [address] [place] [phone] PCP - General Family Medicine 06/08/21
--- OUTSIDE RECORDS SUMMARY | 2024-05-01 21:30 | XMS_ITS | Clinical Summary ---
Author Organization [facility] Address [address] [place] [address] Care Team Providers Care Pig Caster Name Role Phone Beni Jerez DO Primary [...] 06/30/2022 Immunizations Name Administration Dates Next Due Collusion 12Y+ (Requires Dilution) 04/19/2021 DTaP, 5 Pertussis [...] file Growth Chart Information Age Height Weight Nwwfsp-qhz-dcbj th Percentile BMI Percentile Head Circum Head Circum Percentile Date 16 years 151.7 cm (4' 11.72 ) 47.7 kg (105 lb 0.8 oz) 45.11%* 2022 * [facility] (Girls, 2-20 Years) Last Filed Vital Signs [...] 06/21/2022 1:1 5 PM CDT Growth Chart: [facility] (Girls, 2- 20 Years) Plan of Treatment [...] HPV Vaccine Completed 10/02/2020, 08/01/2018 Care Teams Pig Caster Relationship Specialty Start Date End Date Beni Jerez DO [address] [place] [address] PCP - General Family Practice 06/21/22
--- OUTSIDE RECORDS SUMMARY | 2024-05-01 21:30 | XMS_ITS | Referral Summary ---
Author Organization [facility] Address [address] [place] [address] Care Team Providers Care Zigzag Topstitcher Name Role Phone Jackie gOden MD Primary Care Provider [phone] [phone] Allergies Active Allergy Reactions Criticality Noted Date [...] 11/02/2023 1:5 8 PM CDT Growth Chart: [facility] (Girls, 2- 20 Years) Plan of Treatment Not on file Insurance [facility] PLAN [place] [id number] Care Teams Zigzag Topstitcher Relationship Specialty Start Date End Date Jackie Ogden MD [address] [place] [phone] PCP - General Family Medicine 11/02/23
--- OUTSIDE RECORDS SUMMARY | 2024-05-01 21:30 | XMS_ITS | Encounter Summary ---
Author Organization [facility] Address [address] [place] [address] Phone Care Team Providers Care Artificial Pearl Maker Name Role Phone Jackie Ogden MD Primary Care Provider [phone] Reason for Visit * Reason Comments Flank Pain Encounter Details Date Type Department Care Team (Late st Contact Info) Description 04/29/2024 5:33 PM CLERICAL ADJUDICATOR - 04/29/2024 6:59 PM CLERICAL ADJUDICATOR Emergency [facility] Emergency [address] [place] [address] Lela Alejandro, SOLAR ENGINEER, ROOM SERVICE FOOD SERVICE ATTENDANT [address] [place] [address] Renal colic, bilateral Discharge Disposition: Discharged to home or Selfcare Social History Tobacco Use Types Packs/Day Years Used Date Smoking Tobacco: Never Smokeless Tobacco: Never Tobacco Cessation:Counseling Given: Not Answered Comments Unknown Sex and Gender Information Value Date Recorded Sex Assigned at Not on file Legal Sex Female 5:23 PM CLERICAL ADJUDICATOR Gender Identity Not on file Sexual Orientation Not on file documented as of this encounter Last Filed Vital Signs Vital Sign Reading Time Taken Comments Blood Pressure 140/84 04/29/2024 6:56 PM CLERICAL ADJUDICATOR Pulse 99 04/29/2024 6:56 PM CLERICAL ADJUDICATOR Temperature 36.7 C (98 F) 04/29/2024 5:31 PM CLERICAL ADJUDICATOR Respiratory Rate 16 04/29/2024 6:56 PM CLERICAL ADJUDICATOR Oxygen Saturation 100% 04/29/2024 6:56 PM CLERICAL ADJUDICATOR Inhaled Oxygen Concentration - - Weight 42.6 kg (94 lb) 04/29/2024 5:31 PM CLERICAL ADJUDICATOR Height 152.4 cm (5') 04/29/2024 5:31 PM CLERICAL ADJUDICATOR Body Mass Index 18.36 04/29/2024 5:31 PM CLERICAL ADJUDICATOR documented in this encounter Discharge Instructions * Discharge Instructions* Lela Alejandro APRN, CNP - 04/29/2024 6:43 PM CLERICAL ADJUDICATOR Follow-up with primary care physician. Return to the ED with worsening symptoms. ICAL ADJUDICATOR documented in this encounter Medications at Time [...] responsibleparty. SL D/C'ed with Leif cath intact. ICAL ADJUDICATOR * Vira Millan RN - 04/29/2024 6:40 PM CST Report received from Doreen JIMENEZ ICAL ADJUDICATOR * Melisa Aleman RN - 04/29/2024 6:30 PM CST Patient is resting in room with call light at bedside. Patient informed about wait time and verbalizes understanding. Patient denies needs at this time and verbalizes understanding that RN will complete hourly rounding. ICAL ADJUDICATOR * Lela Alejandro, SOLAR ENGINEER, ROOM SERVICE FOOD SERVICE ATTENDANT - 04/29/2024 5:38 PM CST Chief Complaint [...] past 24 hours) Comprehensive Metabolic Panel (Cmp) [id number] Collection Time: 04/29/24 5:41 PM Result Value [...] Range POC URINE Negative POC URINE CONTROL Nutrition And Dietetics Instructor Pass Imaging Results CT RENAL STONE STUDY [...] Ramakrishna Reynoso M.D. AT: AT Report ID: [id number] Reading Location: [place] [address] Labs Reviewed CMP (COMPREHENSIVE METABOLIC PANEL) - [...] created for panel order CBC with Diff [id number]. Procedure Abnormality Status --------- ------ CBC with Auto Differential[[id number]] Abnormal Final result Please view results for [...] ABNORMAL RESULTS Final Result CBC with Diff [id number] Final Result Comprehensive Metabolic Panel (Cmp) [id number] Final Result Medical Decision Making Amount and/or [...] Benny Boucher MD at 04/29/2024 10:52 PM CLERICAL ADJUDICATOR ICAL ADJUDICATOR ICAL ADJUDICATOR * Nevaeh Lainez RN - 04/29/2024 5:31 PM CST Pt complains of bilateral flank pain, but is more painful on the left. Pt describes the pain as a burning sensation. Pt states she has had kidney issues in past, but is unable to give much details onit. ICAL ADJUDICATOR documented in this encounter Miscellaneous Notes * PatientPass Patient Instructions - Lela Alejandro APRN, ROOM SERVICE FOOD SERVICE ATTENDANT - 04/29/2024 6:43 PM CST Images from the original note were not included. Patient Education Table of Contents Renal Colic To view videos and all your education online visit, [email or web address] or scan this QR code with your [...] Follow these instructions at home: Medicines Take [id number] and prescription medicines only as told by [...] 2008-08-09 Document Updated: 2022-11-17 Document Reviewed: 2022-11-17 [employer] Patient Education ? 2023 [employer] Electronically signed by Lela Alejandro, SOLAR ENGINEER, ROOM SERVICE FOOD SERVICE ATTENDANT at 04/29/2024 6:43 PM CLERICAL ADJUDICATOR documented in this encounter Plan of Treatment Not on file documented as of this encounter Procedures Procedure Name Priority Date/Time Associated Diagnosis Comments CT RENAL STONE STUDY (ABDOMEN AND PELVIS W/O CONTRAST) Stat with Interpretation 04/29/2024 6:10 PM CLERICAL ADJUDICATOR POCT URINE HCG () STAT 04/29/2024 5:51 PM CLERICAL ADJUDICATOR URINALYSIS REFLEX IF INDICATED BY ABNORMAL RESULTS STAT 04/29/2024 5:45 PM CLERICAL ADJUDICATOR RSV,SARS-COV-2,INF LUENZA A&B BY PCR STAT 04/29/2024 5:45 PM CLERICAL ADJUDICATOR CBC WITH AUTO DIFFERENTIAL STAT 04/29/2024 5:41 PM CLERICAL ADJUDICATOR CMP (COMPREHENSIVE METABOLIC PANEL) STAT 04/29/2024 5:41 PM CLERICAL ADJUDICATOR COMPLETE BLOOD COUNT (CBC) WITH DIFF STAT 04/29/2024 5:41 PM CLERICAL ADJUDICATOR documented in this encounter Results * CT RENAL STONE STUDY (ABDOMEN AND PELVIS W/O CONTRAST) (04/29/2024 6:10 PM CLERICAL ADJUDICATOR) Anatomical Region Laterality Modality Abdomen N/A Computed Tomogra phy 04/29/2024 6:25 PM CLERICAL ADJUDICATOR Impressions 04/29/2024 6:27 PM CLERICAL ADJUDICATOR IMPRESSION: 1. No hydronephrosis or hydroureter. No calculi in the urinary tract. 2. Circumferential thickening of the urinary bladder wall which is could be due to incomplete distension. However, cystitis remains a possibility in the appropriate clinical setting. Correlation with urinalysis is suggested. Narrative 04/29/2024 6:27 PM CLERICAL ADJUDICATOR EXAM DESCRIPTION: CT RENAL STONE STUDY (ABDOMEN [...] Ramakrishna Reynoso M.D. AT: AT Report ID: [id number] Reading Location: [id number] Procedure Note Ramakrishna Reynoso MD - 04/29/2024 [...] Ramakrishna Reynoso M.D. AT: AT Report ID: [id number] Reading Location: [id number] IMPRESSION: 1. No hydronephrosis or hydroureter. No calculi in the urinary tract. 2. Circumferential thickening of the urinary bladder wall which is could be due to incomplete distension. However, cystitis remains a possibility in the appropriate clinical setting. Correlation with urinalysis is suggested. us Lela Alejandro SOLAR ENGINEER, ROOM SERVICE FOOD SERVICE ATTENDANT IMG CT ORDERABLES Fin al Result * POCT Urine HCG () (04/29/2024 5:51 PM CLERICAL ADJUDICATOR) Pathologist [facility] POC URINE Negative POC URINE CONTROL Nutrition And Dietetics Instructor Pass Urine 04/29/2024 5:51 PM CLERICAL ADJUDICATOR Lela Alejandro APRN, ROOM SERVICE FOOD SERVICE ATTENDANT POINT OF CARE TESTING (MANUAL) Final Result * RSV,SARS-COV-2,INFLUENZA A&B BY PCR (04/29/2024 5:45 PM CLERICAL ADJUDICATOR) Pathologist [facility] FLU A Negative Negative, Error 04/29/2024 6:38 PM CLERICAL ADJUDICATOR [facility] FLU B Negative Negative 04/29/2024 6:38 PM CLERICAL ADJUDICATOR [facility] RESP SYNC VIRUS Negative Negative 6:38 PM CLERICAL ADJUDICATOR [facility] SARSCOV2 NOT DETECTED (Reference Range for this test is Not Detected) 04/29/2024 6:38 PM CLERICAL ADJUDICATOR [facility] Comment:This test was perfor med by a Reverse Cable Tool Operator PCR Method. Swab NASOPHARYNGEAL STRUCTURE / Unknown Non-Phlebotomy Collection / Unknown 04/29/2024 5:45 PM CLERICAL ADJUDICATOR 04/29/2024 5:58 PM CLERICAL ADJUDICATOR Lela Alejandro APRN, ROOM SERVICE FOOD SERVICE ATTENDANT MICROBIOLOGY - GENERA L ORDERABLES Final Result [facility] [address] [place] [address] * (ABNORMAL) URINALYSIS REFLEX IF INDICATED BY ABNORMAL RESULTS (04/29/2024 5:45 PM CLERICAL ADJUDICATOR) [facility] SPECIFIC GRAVITY 1.010 1.003 - 1.030 04/29/2024 6:18 PM CLERICAL ADJUDICATOR [facility] URINE PH 6.0 5.0 - 9.0 04/29/2024 6:18 PM CLERICAL ADJUDICATOR [facility] WBC ESTERASE 25 /ul(A) Negative 04/29/2024 6:18 PM CLERICAL ADJUDICATOR [facility] NITRITE Negative Negative 04/29/2024 6:18 PM CLERICAL ADJUDICATOR [facility] PROTEIN, RANDOM URINE Negative Negative 04/29/2024 6:18 PM CLERICAL ADJUDICATOR [facility] URINE GLUCOSE, QUAL Negative Negative 04/29/2024 6:18 PM CLERICAL ADJUDICATOR [facility] URINE KETONES Negative Negative 04/29/2024 6:18 PM CLERICAL ADJUDICATOR [facility] UROBILINOGEN Normal Normal mg/dL 04/29/2024 6:18 PM CLERICAL ADJUDICATOR [facility] URINE BLOOD Negative Negative johnathan/ul 04/29/2024 6:18 PM CLERICAL ADJUDICATOR [facility] URINALYSIS COLOR Yellow 04/29/19 6:18 PM CLERICAL ADJUDICATOR [facility] URINALYSIS CLARITY Clear 04/29/2024 6:18 PM CLERICAL ADJUDICATOR [facility] WBC (Urine) 0-5 Negative, 0-5 /hpf 04/29/2024 6:18 PM CLERICAL ADJUDICATOR [facility] URINE RBC'S Negative Negative, 0-2 /hpf 04/29/2024 6:18 PM CLERICAL ADJUDICATOR [facility] EPITHELIAL CELLS Small amount /lpf 2024 6:18 PM CLERICAL ADJUDICATOR [facility] BACTERIA, URINE Negative Negative /hpf 04/29/2024 6:18 PM CLERICAL ADJUDICATOR [facility] Urine URINE SPECIMEN OBTAINED BY CLEAN CATCH PROCEDURE / Unknown Non-Phlebotomy Collection / Unknown 04/29/2024 5:45 PM CLERICAL ADJUDICATOR 04/29/2024 5:58 PM CLERICAL ADJUDICATOR us Lela Alejandro SOLAR ENGINEER, ROOM SERVICE FOOD SERVICE ATTENDANT URINE ORDERABLES Debbie l Result [facility] [address] [place] [address] * (ABNORMAL) CBC with Auto Differential (04/29/2024 5:41 PM CLERICAL ADJUDICATOR) WBC 6.73 4.00 - 12.00 10(3)/mcL 04/29/2024 6:02 PM CLERICAL ADJUDICATOR [facility] RBC 4.98 3.80 - 5.30 10(6)/mcL 04/29/2024 6:02 PM [facility] HEMOGLOBIN (HGB) 14.8 12.0 - 15.8 g/dL 04/29/2024 6:02 PM [facility] HEMATOCRIT (HCT) 42.5 36.0 - 47.0 % 04/29/2024 6:02 PM [facility] MCV 85.3 82.0 - 96.0 fL 04/29/2024 6:02 PM [facility] MCH 29.7 26.0 - 34.0 pg 04/29/2024 6:02 PM [facility] MCHC 34.8 31.0 - 36.0 g/dL 04/29/2024 6:02 PM [facility] PLATELET COUNT 320 140 - 440 10(3)/[facility] 04/29/2024 6:02 PM [facility] RDW 11.6(L) 11.8 - 15.5 % 04/29/2024 6:02 PM [facility] MPV 9.6(L) 9.7 - 12.4 fL 04/29/2024 6:02 PM [facility] NEUTROPHILS 65.8 47.0 - 73.0 % 04/29/2024 6:02 PM [facility] LYMPHOCYTES 26.7 18.0 - 42.0 % 04/29/2024 6:02 PM [facility] MONOCYTES 7.1 4.0 - 12.0 % 04/29/2024 6:02 PM [facility] EOSINOPHILS 0.1 0.0 - 5.0 % 04/29/2024 6:02 PM [facility] BASOPHILS 0.3 0.0 - 1.0 % 04/29/2024 6:02 PM [facility] ABSOLUTE NEUTROPHILS 4.42 1.60 - 7.70 10(3)/mcL 04/29/2024 6:02 PM [facility] ABSOLUTE LYMPHOCYTES 1.80 1.30 - 3.20 10(3)/mcL 04/29/2024 6:02 PM CLERICAL ADJUDICATOR [facility] ABSOLUTE MONOCYTES 0.48 0.20 - 1.00 10(3)/mcL 04/29/2024 6:02 PM CLERICAL ADJUDICATOR [facility] ABSOLUTE EOSINOPHIL 0.01 0.00 - 0.40 10(3)/mcL 04/29/2024 6:02 PM [facility] ABSOLUTE BASOPHILS 0.02 0.00 - 0.10 10(3)/[facility] 04/29/2024 6:02 PM [facility] NRBC PER 100 WBC 0 04/29/19 6:02 PM [facility] Blood Venipuncture / Unknown 04/29/2024 5:41 PM CLERICAL ADJUDICATOR 04/29/2024 5:58 PM CLERICAL ADJUDICATOR Lela Alejandro SOLAR ENGINEER, ROOM SERVICE FOOD SERVICE ATTENDANT HEMATOLOGY ORDERABLES Final Result [facility] [address] [place] [address] * (ABNORMAL) Comprehensive Metabolic Panel (Cmp) [id number] (04/29/2024 5:41 PM CLERICAL ADJUDICATOR) SODIUM 139 136 - 145 mmol/L 04/29/2024 6:23 PM [facility] POTASSIUM 3.5 3.5 - 5.1 mmol/L 04/29/2024 6:23 PM [facility] CHLORIDE 105 98 - 107 mmol/L 04/29/2024 6:23 PM [facility] CO2, VENOUS 25 22 - 30 mmol/L 04/29/2024 6:23 PM [facility] ANION GAP 12.5 <18.0 mmol/L 04/29/2024 6:23 PM [facility] GLUCOSE 88 70 - 99 mg/dL 04/29/2024 6:23 PM [facility] BUN 5 5 - 18 mg/dL 04/29/2024 6:23 PM [facility] CREATININE, BLOOD 0.83 0.60 - 1.00 mg/dL 04/29/2024 6:23 PM [facility] BUN/CREATININE RATIO 6(L) 12 - 20 ratio 04/29/2024 6:23 PM [facility] TOTAL PROTEIN 7.7 6.0 - 8.0 g/dL 04/29/2024 6:23 PM [facility] ALBUMIN 4.5 3.5 - 5.0 g/dL 04/29/2024 6:23 PM [facility] A/G RATIO 1.4 1.0 - 2.2 04/29/2024 6:23 PM [facility] CALCIUM 9.0 8.7 - 10.5 mg/dL 04/29/2024 6:23 PM [facility] T BILI 0.7 0.2 - 1.2 mg/dL 04/29/2024 6:23 PM [facility] SGOT (AST) 17 <43 U/L 04/29/2024 6:23 PM [facility] SGPT (ALT) 7 <56 U/L 04/29/2024 6:23 PM [facility] ALKALINE PHOSPHATASE 73 40 - 150 U/L 04/29/2024 6:23 PM [facility] GFR, ESTIMATED >60 >=60 04/29/2024 6:23 PM [facility] Comment: Creatinine Clearance is the preferred criteria for selecting drug dose adjustments in renally impaired patients. The GFR is provided as additional pertinent clinical information. GFR is reported in mL/min/1.73 sq m. Calculation based on the Chronic Kidney Disease Epidemiology Collaboration (CKD- EPI) equation refit without adjustment for race. UNABLE TO CALCULATE GFR, EST. 025 6:23 PM [facility] GFR, EST. NONAFRICAN 04/29/2024 6:23 PM [facility] Blood Venipuncture / Unknown 04/29/2024 5:41 PM CLERICAL ADJUDICATOR 04/29/2024 5:58 PM CLERICAL ADJUDICATOR us Lela Alejandro APRN, CNP CHEMISTRY ORDERABLES Final Result [facility] [address] [place] [address] documented in this encounter Visit Diagnoses Diagnosis Renal colic, bilateral- Primary Renal colic documented in this encounter Administered Medications Inactive Administered Medications - up to 3 most recent administrations Medication Order MAR Action Action Date Dose Rate Site 0.9 % sodium chloride solution at 999 mL/hr, Intravenous, ONCE, 1 dose, On 04/29/24 at 1800 New Bag 04/29/2024 5:49 PM CLERICAL ADJUDICATOR 1,000 mL 999 mL/hr ketorolac (TORADOL) injection 15 mg 15 mg, Intravenous, ONCE, 1 dose, On 04/29/24 at 1800 Given 04/29/2024 5:49 PM CLERICAL ADJUDICATOR 15 mg documented in this encounter Active and Recently Administered Medications Times are shown in CLERICAL ADJUDICATOR. Scheduled Medication Order 04/27/2024 04/28/2024 04/29/2024 0.9 [...] - 19 04/29/2024 04/29/2024 04/29/2024 6:38 PM CLERICAL ADJUDICATOR documented as of this encounter Care Teams Artificial Pearl Maker Relationship Specialty Start Date End Date Jackie Ogden MD [address] [place] [id number] PCP - General Family Medicine 04/29/24 documented as of this encounter
--- OUTSIDE RECORDS SUMMARY | 2024-05-01 21:30 | XMS_ITS | Clinical Summary ---
Author Organization [facility] Address [address] [place] [address] Care Team Providers Care Water Pump Operator Name Role Phone Provider, Aviva Unavailable Unavailable Fabian Hanna DO Unavailable Lupe Gipson RN Unavailable Unavailable Maame Duarte APRN-BAND SALVAGER Unavailable + Not Named, Unknown Primary Care [...] age to complete this topic Care Teams Water Pump Operator Relationship Specialty Start Date End Date Not Named, Unknown PCP - General 03/14/24 Provider, Arrontxelder 12/03/15 Fabian Hanna DO [address] [facility] [address] [place] [address] GASTROENTEROLOGY 01/02/16 Lupe Gipson, RN Nurse 03/02/16 Maame Duarte APRN-BAND SALVAGER [address] [facility] [address] [place] [address] CONTROL INSPECTOR - Nurse Practitioner NEUROLOGY 07/01/16
--- NOTE | 2024-05-01 21:33 | PC.NURSE ---
Pt taken to the bathroom. Upon trying to collect urine sample, pt stated I had to pee so bad that I forgot to go into the cup.
[2024-05-01 21:57] LABS: Add Urine Microscopic? NO; Appearance Urine Clear (Clear); Bilirubin Urine Negative (Negative); Blood Urine Negative (Negative); Color Urine Yellow (Yellow); Glucose Urine UA Negative (Negative); Ketones Urine Negative (Negative); Leukocyte Esterase Ur Negative LEU/UL (Negative); Nitrate Urine Negative (Negative); Protein Urine Negative (Negative); Specific Grav Ur 1.004 (1.001-1.035); Urobilinogen Urine 0.2 mg/dL (<2.0)
[2024-05-01 21:58] LABS: BEDSIDEPREGUCG Negative (Negative)
[2024-05-01 22:30] VITALS: BP 127/86; PULSE 86; RESP 18; O2SAT 100
== END 2024-05-01 22:30 | disposition home or self-care (01) ==
PROVIDERS: Physician Assistant; Emergency Provider Emergency Medicine
DX: R42 Dizziness and giddiness (principal)
CPT/HCPCS: 36415; 70450; 71046; 80053; 81003; 81025; 83690; 85025; 87637; 93005; 96360; 99284; J7120

== ENCOUNTER 2024-11-02 03:28 | Emergency (ER) | payer BC, SELFPAY ==
[2024-11-02 03:25] VITALS: BP 118/81; PULSE 90; RESP 13; TEMP 36.8; O2SAT 99
--- NOTE | 2024-11-02 04:17 | ED.GENADULT ---
HPI - General Adult General Chief complaint: Psychiatric Symptoms Stated complaint: etoh, +extra xanax, called SI hotline Time Seen by Provider: 11/02/24 03:56 History of Present Illness HPI narrative: This is a 18-year-old female presenting for suicidal ideation. 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 She also has multiple other obligations including student government and mentoring. This is all become very overwhelming. She received her call from her father earlier today was an alcoholic this caused her significant amount of stress. She started to have thoughts of harming herself without a clear plan. She then called a suicide hotline and spoke with them for several hours and they sent police to the patient's house. Before they arrived the patient had some alcohol and then took 4 doses of Xanax. The patient denies this was a suicide attempt. Patient states she had his prior suicide attempt during COVID where she tried to take some of her mother's pills. She does not access to a firearm. She is not currently suicidal or homicidal. Auditory visual hallucinations. The patient has been on antidepressants in the past but is not currently taking any. She has tried to get psychiatric help but his pulmonary reviewed in triage. She would be interested in outpatient follow-up she had someone to speak with. Related Data Home Medications ?Medication ?Instructions ?Recorded ?Confirmed ?Last Taken ?Type alprazolam 0.25 mg tablet 0.25 mg PO PRN PRN Anxiety 09/28/23 09/28/23 Unknown History atomoxetine 25 mg capsule 25 mg PO DAILY 09/28/23 09/28/23 Unknown History buspirone 5 mg tablet 5 mg PO BID 09/28/23 09/28/23 Unknown History escitalopram oxalate 5 mg tablet 5 mg PO DAILY 09/28/23 09/28/23 Unknown History Allergies Allergy/AdvReac Type Severity Reaction Status Date / Time Penicillins Allergy Rash Verified 05/01/24 16:52 Exam Narrative: APPEARANCE: No apparent distress. Head: atraumatic. EYES: EOMI, NOSE: Atraumatic NECK: Trachea midline RESPIRATORY: No increased rate of breathing CTAB CARDIOVASCULAR: RRR, ABDOMINAL: Non-distended MUSCULOSKELETAl: No obvious deformities NEURO: Alert. Moving 4/4 extremities SKIN:: Warm, dry. Normal color PSYCHIATRIC: Normal affect Course Vital Signs Vital signs: Vital Signs Temperature 98.2 F 11/02/24 03:25 Pulse Rate 90 11/02/24 03:25 Respiratory Rate 13 11/02/24 03:25 Blood Pressure 118/81 11/02/24 03:25 Pulse Oximetry 99 11/02/24 03:25 Oxygen Delivery Room Air 11/02/24 03:25 Temperature 98.2 F 11/02/24 03:25 Pulse Rate 90 11/02/24 03:25 Respiratory Rate 13 11/02/24 03:25 Blood Pressure 118/81 11/02/24 03:25 Pulse Oximetry 99 11/02/24 03:25 Oxygen Delivery Room Air 11/02/24 03:25 Medical Decision Making MDM Narrative Medical decision making narrative: -Course: 18 year female presenting for possible suicide attempt. No plan. Patient is interested in getting help. Screening lab work is unremarkable. Patient is medically cleared for crisis evaluation. Patient was evaluated by crisis and has been safety plan. They been given resources for further psychiatric care. -DDX includes but is not limited to: Suicidal ideation, depression, adjustment disorder Vital Signs Vital Signs: Vital Signs Temperature 98.2 F 11/02/24 03:25 Pulse Rate 90 11/02/24 03:25 Respiratory Rate 13 11/02/24 03:25 Blood Pressure 118/81 11/02/24 03:25 Pulse Oximetry 99 11/02/24 03:25 Oxygen Delivery Room Air 11/02/24 03:25 Temperature 98.2 F 11/02/24 03:25 Pulse Rate 90 11/02/24 03:25 Respiratory Rate 13 11/02/24 03:25 Blood Pressure 118/81 11/02/24 03:25 Pulse Oximetry 99 11/02/24 03:25 Oxygen Delivery Room Air 11/02/24 03:25 Lab Data 11/02/24 04:01 11/02/24 04:01 Labs: Lab Results 11/02/24 11/02/24 Range/Units 03:43 04:01 WBC 7.6 (4.5-10.0) K/mm3 RBC 5.19 (4.2-5.4) M/mm3 Hgb 15.3 H (12.0-15.0) g/dL Hct 44.8 (37.0-47.0) % MCV 86.3 (80-100) fl MCH 29.5 (26-34) pg MCHC 34.2 (32-36) g/dl RDW 11.6 (11.5-14.5) % Plt Count 301 (150-375) k/mm3 MPV 9.4 (7.4-10.4) fl Immature Gran % (Auto) 0.1 (0-0.5) % Neut % (Auto) 61.4 (45.5-73.1) % Lymph % (Auto) 29.9 (18.3-44.2) % [place] % (Auto) 7.4 (2.6-8.5) % Eos % (Auto) 0.7 (0-4.4) % Baso % (Auto) 0.5 (0.2-1.2) % Lymph # (Auto) 2.26 (0.9-3.2) K/mm3 Story # (Auto) 0.6 (0.1-0.6) K/mm3 Eos # (Auto) 0.1 (0-0.3) K/mm3 Baso # (Auto) 0.0 (0.0-0.1) K/mm3 Abs Immat Gran (auto) 0.01 (0.00-0.031) K/mm3 Absolute Neuts (auto) 4.7 (1.3-6.7) K/mm3 Absolute Nucleated RBC 0.000 (0.0-0.012) K/mm3 Nucleated RBC % 0.0 (0.0-0.2) % Sodium 138 (134-143) mmol/L Potassium 3.6 (3.4-5.0) mmol/L Chloride 100 (98-107) mmol/L Carbon Dioxide 27 (22-30) mmol/L Anion Gap 11 (4-12) mmol/L BUN 7 L (8-21) mg/dL Creatinine 0.71 (0.7-1.0) mg/dL Estim Creat Clear Calc 79 ml/min Estimated GFR > 60 (59 - ) Glucose 91 (65-110) mg/dL Calcium 9.6 (8.9-10.7) mg/dL Total Bilirubin 0.7 (0.2-1.3) mg/dL AST 23 (14-36) U/L ALT 12 (6-35) U/L Alkaline Phosphatase 72 (45-116) U/L Total Protein 8.2 (6.3-8.6) g/dL Albumin 4.8 (3.7-5.6) g/dL TSH (Reflex) 3.030 (0.465-4.68) uIU/mL Urine Color Yellow (Yellow) Urine Appearance Clear (Clear) Urine pH 7.0 (5.0-9.0) Ur Specific [place] 1.009 (1.001-1.035) Urine Protein Negative (Negative) mg/dL Urine Glucose (UA) Negative (Negative) mg/dL Urine Ketones Negative (Negative) mg/dL Ur Blood (Man) Negative (Negative) Urine Nitrate Negative (Negative) Urine Bilirubin Negative (Negative) Urine Urobilinogen 0.2 (<2.0) mg/dL Leukocyte Esterase Rfl Negative (Negative) STEPHON/UL Urine RBC 0-2 (0-2) /hpf Urine WBC 0-5 (0-3) /hpf Ur Squamous Epith Cells None seen (Few) /hpf Urine Bacteria None seen /hpf Urine Casts 0-2 POC Urine HCG, Qual Negative (Negative) Urine Opiates Screen Negative (Negative) Urine Methadone Screen Negative (Negative) Ur Barbiturates Screen Negative (Negative) Ur Phencyclidine Scrn Negative (Negative) Ur Amphetamine Screen Positive A (Negative) U Benzodiazepines Scrn Positive A (Negative) Urine Cocaine Screen Negative (Negative) U Cannabinoids Screen Negative (Negative) Ethyl Alcohol < 10 (<10) mg/dL Discharge Plan Discharge Clinical Impression: Depression Patient Disposition: Home Condition: Stable Instructions: Antibiotic Form, Depression (ED) Additional Instructions: You were seen in the emergency department for depression please follow-up with the resources to you by the crisis team. Please return to the ED if you develop any thoughts of harming herself or others. Patient Language: Hebrew Prescriptions: No Action buspirone 5 mg tablet 5 mg PO BID alprazolam 0.25 mg tablet 0.25 mg PO PRN PRN (Reason: Anxiety) atomoxetine 25 mg capsule 25 mg PO DAILY escitalopram oxalate 5 mg tablet 5 mg PO DAILY ibuprofen 800 mg tablet 800 mg PO Q6H PRN (Reason: pain) Qty: 30 0RF Follow-up/Referrals: UNKNOWN,DOCTOR [Primary Care Provider]
[2024-11-02 04:25] LABS: Add Urine Microscopic? NO; Appearance Urine Clear (Clear); Glucose Urine UA Negative (Negative); Hematocrit 44.8 % (37.0-47.0); Hemoglobin 15.3 g/dL (12.0-15.0); Immature Granulocyte Percent A 0.1 % (0-0.5); Leukocyte Esterase Ur Negative LEU/UL (Negative); Lymphocytes Absolute Auto 2.26 K/mm3 (0.9-3.2); Mean Corpuscular HGB Conc 34.2 g/dl (32-36); Mean Corpuscular Hemoglobin 29.5 pg (26-34); Mean Corpuscular Volume 86.3 fl (80-100); Nitrate Urine Negative (Negative); Nucleated Red Blood Cells Absolute Auto 0.000 K/mm3 (0.0-0.012); Nucleated Red Blood Cells Perc 0.0 % (0.0-0.2); Platelet Count Result 301 k/mm3 (150-375); Red Blood Count 5.19 M/mm3 (4.2-5.4); Specific Grav Ur 1.009 (1.001-1.035); White Blood Count 7.6 K/mm3 (4.5-10.0)
[2024-11-02 04:26] LABS: BEDSIDEPREGUCG Negative (Negative)
[2024-11-02 04:37] LABS: Alanine Aminotransferase 12 U/L (6-35); Albumin Level 4.8 g/dL (3.7-5.6); Alkaline Phosphatase 72 U/L (45-116); Anion Gap 11 mmol/L (4-12); Aspartate Amino Transferase 23 U/L (14-36); Bilirubin,Total 0.7 mg/dL (0.2-1.3); Blood Urea Nitrogen 7 mg/dL (8-21); Calcium 9.6 mg/dL (8.9-10.7); Carbon Dioxide 27 mmol/L (22-30); Chloride 100 mmol/L (98-107); Estimated CRCL calculation 79 ml/min; Estimated Glomerular Filt Rate > 60; Glucose 91 mg/dL (65-110); Potassium 3.6 mmol/L (3.4-5.0); Sodium 138 mmol/L (134-143); Total Protein 8.2 g/dL (6.3-8.6)
[2024-11-02 04:39] LABS: Non Pathogenic Casts 0-2
[2024-11-02 04:50] LABS: Cannabinoid Screen Urine Negative (Negative)
[2024-11-02 05:04] LABS: Thyroid Stimulating Hormone Reflex 3.030 uIU/mL (0.465-4.68)
--- NOTE | 2024-11-02 05:45 | PC.NURSE ---
Inge at [facility] Intake ([phone]) stated a [facility] worker would be out in approx 2 hrs to evaluate pt. She request a call back if its greater than 2 hrs and no one shows up for evaluation of pt
[2024-11-02 08:16] VITALS: BP 99/70; PULSE 70; RESP 18; TEMP 36.6; O2SAT 99
--- NOTE | 2024-11-02 08:32 | PC.NURSE ---
Waiting for care Coordination to bring resources for patient safety plan
== END 2024-11-02 09:18 | disposition home or self-care (01) ==
PROVIDERS: Emergency Provider Emergency Medicine
DX: F32.A Depression, unspecified (principal); Z79.899 Other long term (current) drug therapy
CPT/HCPCS: 36415; 80053; 80307; 81003; 81025; 82077; 84443; 85025; 99284

== ENCOUNTER 2025-01-22 05:43 | Emergency (ER) | payer BC, SELFPAY ==
[2025-01-22] VITALS (8 sets, daily range): BP systolic 109–143; BP diastolic 65–86; PULSE 101–169; RESP 12–39; TEMP 37.6; O2SAT 99–100
--- NOTE | ~2025-01-22 | XR_ITS ---
Examination: XR chest 1V portable Clinical History: PAPITATIONS R/T COCAINE USE Comparison: 05/01/2024 Technique: Portable AP Findings: Heart size normal. Mild diffuse interstitial markings. No acute bony abnormality. IMPRESSION: 1. Probable mild diffuse pneumonitis. Reviewed, dictated and finalized at location R. CONTROL OFF[employer]ER
--- NOTE | 2025-01-22 05:47 | ECG_ITS ---
Test Date: 2025-01-22 05:50:50 Measurements Intervals [place] Rate: 133 P: 71 [place]: 139 QRS: 68 QRSD: 68 T: 55 QT: 298 QTc: 443 Interpretive Statements SINUS TACHYCARDIA NONSPECIFIC ST AND T-WAVE ABNORMALITY ABNORMAL ECG Electronically Signed On 01-22-2025 09:03:59 [employer] by Nhan Booth M.D.
[2025-01-22 06:06] LABS: Hematocrit 48.3 % (37.0-47.0); Hemoglobin 16.6 g/dL (12.0-15.0); Immature Granulocyte Percent A 0.4 % (0-0.5); Lymphocytes Absolute Auto 2.18 K/mm3 (0.9-3.2); Mean Corpuscular HGB Conc 34.4 g/dl (32-36); Mean Corpuscular Hemoglobin 29.4 pg (26-34); Mean Corpuscular Volume 85.6 fl (80-100); Nucleated Red Blood Cells Absolute Auto 0.000 K/mm3 (0.0-0.012); Nucleated Red Blood Cells Perc 0.0 % (0.0-0.2); Platelet Count Result 333 k/mm3 (150-375); Red Blood Count 5.64 M/mm3 (4.2-5.4); White Blood Count 16.7 K/mm3 (4.5-10.0)
[2025-01-22 06:17] LABS: INR 1.1; Partial Thromboplastin Time 27.7 Seconds (22.3-36.8); Prothrombin Time 13.9 Seconds (11.1-14.7)
[2025-01-22] MEDS: SODIUM CHLORIDE 0.9% IV 1,000 ML 999 ML (06:17)
--- NOTE | 2025-01-22 06:19 | ED.GENADULT ---
HPI - General Adult General Chief complaint: Arrhythmia/Palpitations <Chandana Reese MD - Last Filed: 01/22/25 06:23> Stated complaint: HEART PALPITATIONS S/P COCAINE USE; ETOH+ <Chandana Reese MD - Last Filed: 01/22/25 06:23> Time Seen by Provider: 01/22/25 06:12 <Chandana Reese MD - Last Filed: 01/22/25 06:23> History of Present Illness HPI narrative: patient 19-year-old female who presents emergency department with chief complaint of chest pain and palpitations the patient reports that she has been using cocaine and drinking alcohol <Chandana Reese MD - Last Filed: 01/22/25 06:23> Related Data Home medications: Home Medications ?Medication ?Instructions ?Recorded ?Confirmed ?Last Taken ?Type alprazolam 0.25 mg tablet 0.25 mg PO PRN PRN Anxiety 09/28/23 09/28/23 Unknown History atomoxetine 25 mg capsule 25 mg PO DAILY 09/28/23 09/28/23 Unknown History buspirone 5 mg tablet 5 mg PO BID 09/28/23 09/28/23 Unknown History escitalopram oxalate 5 mg tablet 5 mg PO DAILY 09/28/23 09/28/23 Unknown History <Chandana Reese MD - Last Filed: 01/22/25 06:23> Allergies/adverse reactions: Allergies Allergy/AdvReac Type Severity Reaction Status Date / Time Penicillins Allergy Rash Verified 05/01/24 16:52 <Chandana Reese MD - Last Filed: 01/22/25 06:23> Review of Systems Review of Systems: A 10 system review of systems was completed on the patient and is negative except for what is stated in the HPI. Nursing and ancillary documentation was reviewed. <Chandana Reese MD - Last Filed: 01/22/25 06:23> Exam Narrative: GENERAL: Well-appearing, well-nourished, and Anxious, HEAD: Normocephalic, atraumatic. EYES: PERRLA and EOMI. ENT: Nares clear, no rhinorrhea or epistaxis. Mucous membranes moist. NECK: Supple. CHEST: Clear to auscultation. No respiratory distress. HEART: tachycardic rate and rhythm. No murmur heard. Normal peripheral pulses. ABDOMEN: Soft, nontender, nondistended, normal active bowel sounds. EXTREMITIES: Normal range of motion. No edema. SKIN: Warm, dry, no rash. NEURO: No focal deficits. Alert and oriented x3. PSYCH: anxious mood and affect. <Chandana Reese MD - Last Filed: 01/22/25 06:23> Course Vital Signs Vital signs: Vital Signs Temperature 99.6 F 01/22/25 05:56 Pulse Rate 117 H 01/22/25 05:56 Respiratory Rate 12 01/22/25 05:56 Blood Pressure 135/86 01/22/25 05:56 Pulse Oximetry 99 01/22/25 05:56 Temperature 99.6 F 01/22/25 05:56 Pulse Rate 101 H 01/22/25 09:18 Respiratory Rate 16 01/22/25 09:18 Blood Pressure 109/69 01/22/25 09:18 Pulse Oximetry 100 01/22/25 09:18 <Chandana Reese MD - Last Filed: 01/22/25 06:23> Vital Signs Temperature 99.6 F 01/22/25 05:56 Pulse Rate 117 H 01/22/25 05:56 Respiratory Rate 12 01/22/25 05:56 Blood Pressure 135/86 01/22/25 05:56 Pulse Oximetry 99 01/22/25 05:56 Temperature 99.6 F 01/22/25 05:56 Pulse Rate 101 H 01/22/25 09:18 Respiratory Rate 16 01/22/25 09:18 Blood Pressure 109/69 01/22/25 09:18 Pulse Oximetry 100 01/22/25 09:18 <Willis Wayne MD - Last Filed: 01/22/25 18:07> Medical Decision Making MDM Narrative Medical decision making narrative: Tone 19-year-old female present to the emergency department for evaluation for heart palpitations secondary to alcohol consumption and cocaine use. Patient was treated with IV Valium and IV fluids. Patient is afebrile but does have a white blood cell count of 16.7 hemoglobin of 16.6. INR 1.1. No acute abnormalities on her CMP including normal creatinine. Patient's troponin was not elevated. On re-evaluation patient's heart rate is no longer tachycardic and patient is feeling improved. <Willis Wayne MD - Last Filed: 01/22/25 18:07> Vital Signs Vital Signs: Vital Signs Temperature 99.6 F 01/22/25 05:56 Pulse Rate 117 H 01/22/25 05:56 Respiratory Rate 12 01/22/25 05:56 Blood Pressure 135/86 01/22/25 05:56 Pulse Oximetry 99 01/22/25 05:56 Temperature 99.6 F 01/22/25 05:56 Pulse Rate 101 H 01/22/25 09:18 Respiratory Rate 16 01/22/25 09:18 Blood Pressure 109/69 01/22/25 09:18 Pulse Oximetry 100 01/22/25 09:18 <Chandana Reese MD - Last Filed: 01/22/25 06:23> Vital Signs Temperature 99.6 F 01/22/25 05:56 Pulse Rate 117 H 01/22/25 05:56 Respiratory Rate 12 01/22/25 05:56 Blood Pressure 135/86 01/22/25 05:56 Pulse Oximetry 99 01/22/25 05:56 Temperature 99.6 F 01/22/25 05:56 Pulse Rate 101 H 01/22/25 09:18 Respiratory Rate 16 01/22/25 09:18 Blood Pressure 109/69 01/22/25 09:18 Pulse Oximetry 100 01/22/25 09:18 <Willis Wayne MD - Last Filed: 01/22/25 18:07> Lab Data Result diagrams: 01/22/25 06:00 01/22/25 06:00 <Chandana Reese MD - Last Filed: 01/22/25 06:23> Labs: Lab Results 01/22/25 Range/Units 06:00 WBC 16.7 H (4.5-10.0) K/mm3 RBC 5.64 H (4.2-5.4) M/mm3 Hgb 16.6 H (12.0-15.0) g/dL Hct 48.3 H (37.0-47.0) % MCV 85.6 (80-100) fl MCH 29.4 (26-34) pg MCHC 34.4 (32-36) g/dl RDW 12.2 (11.5-14.5) % Plt Count 333 (150-375) k/mm3 MPV 9.0 (7.4-10.4) fl Immature Gran % (Auto) 0.4 (0-0.5) % Neut % (Auto) 82.7 H (45.5-73.1) % Lymph % (Auto) 13.1 L (18.3-44.2) % [place] % (Auto) 3.3 (2.6-8.5) % Eos % (Auto) 0.0 (0-4.4) % Baso % (Auto) 0.5 (0.2-1.2) % Lymph # (Auto) 2.18 (0.9-3.2) K/mm3 [place] # (Auto) 0.6 (0.1-0.6) K/mm3 Eos # (Auto) 0.0 (0-0.3) K/mm3 Baso # (Auto) 0.1 (0.0-0.1) K/mm3 Abs Immat Gran (auto) 0.06 H (0.00-0.031) K/mm3 Absolute Neuts (auto) 13.8 H (1.3-6.7) K/mm3 Absolute Nucleated RBC 0.000 (0.0-0.012) K/mm3 Nucleated RBC % 0.0 (0.0-0.2) % PT 13.9 (11.1-14.7) Seconds INR 1.1 APTT 27.7 (22.3-36.8) Seconds Sodium 142 (137-145) mmol/L Potassium 3.7 (3.4-5.0) mmol/L Chloride 104 (98-107) mmol/L Carbon Dioxide 17 L (22-30) mmol/L Anion Gap 21 H (4-12) mmol/L BUN 7 (7-17) mg/dL Creatinine 0.75 (0.7-1.0) mg/dL Estim Creat Clear Calc 74 ml/min Estimated GFR > 60 (59 - ) Glucose 86 (65-110) mg/dL Calcium 9.7 (8.4-10.2) mg/dL Total Bilirubin 1.0 (0.2-1.3) mg/dL AST 29 (14-36) U/L ALT 18 (6-35) U/L Alkaline Phosphatase 124 (38-126) U/L Total Creatine Kinase 74 (30-135) U/L Troponin I < 0.012 (0.000-0.034) ng/mL Total Protein 9.5 H (6.3-8.2) g/dL Albumin 5.4 H (3.5-5.1) g/dL Lipase 83 (23-300) U/L Ethyl Alcohol 153 (<10) mg/dL <Chandana Reese MD - Last Filed: 01/22/25 06:23> Lab Results 01/22/25 Range/Units 06:00 WBC 16.7 H (4.5-10.0) K/mm3 RBC 5.64 H (4.2-5.4) M/mm3 Hgb 16.6 H (12.0-15.0) g/dL Hct 48.3 H (37.0-47.0) % MCV 85.6 (80-100) fl MCH 29.4 (26-34) pg MCHC 34.4 (32-36) g/dl RDW 12.2 (11.5-14.5) % Plt Count 333 (150-375) k/mm3 MPV 9.0 (7.4-10.4) fl Immature Gran % (Auto) 0.4 (0-0.5) % Neut % (Auto) 82.7 H (45.5-73.1) % Lymph % (Auto) 13.1 L (18.3-44.2) % [place] % (Auto) 3.3 (2.6-8.5) % Eos % (Auto) 0.0 (0-4.4) % Baso % (Auto) 0.5 (0.2-1.2) % Lymph # (Auto) 2.18 (0.9-3.2) K/mm3 [place] # (Auto) 0.6 (0.1-0.6) K/mm3 Eos # (Auto) 0.0 (0-0.3) K/mm3 Baso # (Auto) 0.1 (0.0-0.1) K/mm3 Abs Immat Gran (auto) 0.06 H (0.00-0.031) K/mm3 Absolute Neuts (auto) 13.8 H (1.3-6.7) K/mm3 Absolute Nucleated RBC 0.000 (0.0-0.012) K/mm3 Nucleated RBC % 0.0 (0.0-0.2) % PT 13.9 (11.1-14.7) Seconds INR 1.1 APTT 27.7 (22.3-36.8) Seconds Sodium 142 (137-145) mmol/L Potassium 3.7 (3.4-5.0) mmol/L Chloride 104 (98-107) mmol/L Carbon Dioxide 17 L (22-30) mmol/L Anion Gap 21 H (4-12) mmol/L BUN 7 (7-17) mg/dL Creatinine 0.75 (0.7-1.0) mg/dL Estim Creat Clear Calc 74 ml/min Estimated GFR > 60 (59 - ) Glucose 86 (65-110) mg/dL Calcium 9.7 (8.4-10.2) mg/dL Total Bilirubin 1.0 (0.2-1.3) mg/dL AST 29 (14-36) U/L ALT 18 (6-35) U/L Alkaline Phosphatase 124 (38-126) U/L Total Creatine Kinase 74 (30-135) U/L Troponin I < 0.012 (0.000-0.034) ng/mL Total Protein 9.5 H (6.3-8.2) g/dL Albumin 5.4 H (3.5-5.1) g/dL Lipase 83 (23-300) U/L Ethyl Alcohol 153 (<10) mg/dL <Willis Wayne MD - Last Filed: 01/22/25 18:07> Discharge Plan Discharge Clinical Impression: Palpitations, Cocaine abuse <Chandana Reese MD - Last Filed: 01/22/25 06:23> Patient Disposition: Home <Chandana Reese MD - Last Filed: 01/22/25 06:23> Condition: Stable <Chandana Reese MD - Last Filed: 01/22/25 06:23> Instructions: Antibiotic Form, Polysubstance Use Disorder (ED) <Chandana Reese MD - Last Filed: 01/22/25 06:23> Additional Instructions: Refrain from cocaine use. Have close follow-up with your primary care physician. <Chandana Reese MD - Last Filed: 01/22/25 06:23> Patient Language: Turkish <Chandana Reese MD - Last Filed: 01/22/25 06:23> Prescriptions: No Action buspirone 5 mg tablet 5 mg PO BID alprazolam 0.25 mg tablet 0.25 mg PO PRN PRN (Reason: Anxiety) atomoxetine 25 mg capsule 25 mg PO DAILY escitalopram oxalate 5 mg tablet 5 mg PO DAILY ibuprofen 800 mg tablet 800 mg PO Q6H PRN (Reason: pain) Qty: 30 0RF <Chandana Reese MD - Last Filed: 01/22/25 06:23> Follow-up/Referrals: UNKNOWN,DOCTOR [Non-Staff] <Chandana Reese MD - Last Filed: 01/22/25 06:23>
[2025-01-22 06:21] LABS: Alanine Aminotransferase 18 U/L (6-35); Albumin Level 5.4 g/dL (3.5-5.1); Alkaline Phosphatase 124 U/L (38-126); Anion Gap 21 mmol/L (4-12); Aspartate Amino Transferase 29 U/L (14-36); Bilirubin,Total 1.0 mg/dL (0.2-1.3); Blood Urea Nitrogen 7 mg/dL (7-17); Calcium 9.7 mg/dL (8.4-10.2); Carbon Dioxide 17 mmol/L (22-30); Chloride 104 mmol/L (98-107); Estimated CRCL calculation 74 ml/min; Estimated Glomerular Filt Rate > 60; Glucose 86 mg/dL (65-110); Lipase 83 U/L (23-300); Potassium 3.7 mmol/L (3.4-5.0); Sodium 142 mmol/L (137-145); Total Protein 9.5 g/dL (6.3-8.2)
[2025-01-22] MEDS: diazePAM INJ (*CRX) 10 MG/2 ML SYRINGE 5 MG IV PUSH ×2 (06:21→06:50)
[2025-01-22 06:28] LABS: Troponin I < 0.012 ng/mL (0.000-0.034)
[2025-01-22 07:23] LABS: Creatine Kinase 74 U/L (30-135)
[2025-01-22] MEDS: ACETAMINOPHEN 500 MG TABLET 1000 MG PO (09:12)
== END 2025-01-22 09:20 | disposition home or self-care (01) ==
PROVIDERS: Emergency Provider Emergency Medicine
DX: R00.2 Palpitations (principal); F14.10 Cocaine abuse, uncomplicated; R94.31 Abnormal electrocardiogram [ECG] [EKG]
CPT/HCPCS: 36415; 71045; 80053; 82077; 82550; 83690; 84484; 85025; 85610; 85730; 93005; 96361; 96374; 96376; 99284; A9270; J3360; J7030